=== PATIENT | male | born 1955 | race Caucasian/White ===

== ENCOUNTER 2019-05-04 17:59 | Inpatient (IN) | payer OTHER, SELFPAY ==
[2019-05-04 18:10] VITALS: BP 171/101; PULSE 109; RESP 24; TEMP 36.9; O2SAT 99
--- NOTE | 2019-05-04 18:20 | DI.RAD.S_ITS ---
PROCEDURE: XR CHEST 1V INDICATIONS: cp/soa TECHNIQUE: One view of the chest was acquired. COMPARISON: [facility], , CHEST 2 VIEW, 08/11/2013, 9:00. FINDINGS: Surgical changes and devices: None. Lungs and pleura: Right lower lobe infiltrate. No pleural effusions or pneumothorax. Mediastinum: Mediastinal contours appear normal. Heart size is normal. Bones and chest wall: No suspicious bony lesions. Overlying soft tissues appear unremarkable. IMPRESSION: Right lower lobe infiltrate suspicious for pneumonia Dictated by: Sid Francois M.D. on 05/04/2019 at 18:57 Approved by: Sid Francois M.D. on 05/04/2019 at 18:58
[2019-05-04 18:39] LABS: Alanine Aminotransferase 30 IU/L (<50); Albumin 2.4 g/dL (3.5-5.0); Albumin Globulin Ratio 0.6 (1.0-2.8); Alkaline Phosphatase 124 U/L (38-126); Aspartate Aminotransferase 41 IU/L (17-59); BUN Creatinine Ratio 23.3 (6-22); Bilirubin Total 1.1 mg/dL (0.2-1.3); Blood Urea Nitrogen 14 mg/dL (9-20); Calcium 7.5 mg/dL (8.4-10.2); Carbon Dioxide 20 mmol/L (22-32); Chloride 113 mmol/L (98-107); Estimated Glomerular Filt Rate > 60.0 mL/min (>60); Globulin 4.2 g/dL (1.7-4.1); Glucose 116 mg/dL (80-110); HEMOLYSIS < 15 (0-50); Lipase 152 U/L (23-300); Potassium 4.2 mmol/L (3.4-5.1); Sodium 139 mmol/L (137-145); Total Protein 6.6 g/dL (6.3-8.2)
--- NOTE | 2019-05-04 18:47 | ED.CHESTPAIN ---
HPI - Chest Pain General Chief Complaint: Chest Pain Stated Complaint: heart hurts, trouble breathing Time Seen by Provider: 05/04/19 18:36 Source: patient Mode of arrival: Ambulatory History of Present Illness HPI narrative: Chief complaint: Shortness of breath on exertion. History of present illness: The patient is a 64-year-old male who is a very poor historian. He denies any chest pain. He complains primarily of shortness of breath on exertion. He as he is complaining of the shortness of breath he is pointing to his abdomen with massive ascites. He complains of abdominal pain when walking and ambulating. He denies a history of phlebitis or pulmonary embolism. He arm smoke cigarettes. He denies a history of COPD myocardial infarction congestive heart failure hypertension and diabetes mellitus. I am not sure that he fully understands my questioning. He has had no fever chills or sweats and denies any headache. He complains primarily of shortness of breath repeated the. He has had no cough palpitations or dizziness. He denies any nausea vomiting diarrhea. He has had no urinary symptoms. He denies any cirrhosis of the liver liver disease. Related Data Allergies Allergy/AdvReac Type Severity Reaction Status Date / Time No Known Drug Allergies Allergy Verified 05/04/19 18:12 Review of Systems Review of Systems Narrative: The patient is a poor historian and I question his reliability. The patient's review of systems were all negative except for those mentioned in the history of present illness. Exam Narrative Exam Narrative: PHYSICAL EXAM: CONSTITUTIONAL: Awake, Alert, Cooperative in NAD. The patient seems to be laughing inappropriately. He does not appear acutely toxic or ill. HEAD: AT/NC EENT: PERRL, FROM of eyes, no discharge, no nystagmus. The patient is not cooperative and is moving about. His sclerae are muddy and questionably icteric. His skin seems to be jaundiced No epistaxis or nasal drainage Oral mucosa is moist and pink, posterior pharynx is without erythema or exudate. NECK: Supple, no obvious JVD, Trachea is midline without stridor, no palpable LN or masses. SPINE: No gross deformity, no palpable tenderness of the cervical, thoracic, lumbar or sacral spine. No CVA tenderness. The patient has 2+ sacral edema. THORAX: No deformity, retractions, chest wall tenderness, subcutaneous air or crepitice. LUNGS: Bibasilar inspiratory crackles no expiratory wheezes or rhonchi appreciated. HEART: Heart tones are irregular periodically but for the most part regular. No appreciable murmur. ABDOMEN: Massively distended with an umbilical hernia . Abdomen is taut with shifting dullness. There is diffuse tenderness but no guarding or rebound appreciated. EXTREMITIES: Legs are swollen and taut with 2+ pitting edema. There appears to be some mild venous stasis changes. There is no significant calf tenderness. SKIN: No rash, bruising, petechiae or purpura. NEURO: Awake, alert, conversive, cranial nerves II-XII are symmetrical and normal, moves all 4 extremities . Initial Vital Signs Initial Vital Signs: Vital Signs Temperature 98.5 F 05/04/19 18:10 Pulse Rate 109 H 05/04/19 18:10 Respiratory Rate 24 05/04/19 18:10 Blood Pressure 171/101 H 05/04/19 18:10 Pulse Oximetry 99 05/04/19 18:10 Course Course Course Narrative: 1856: I could not find arm any history document of his home liver disease. The patient clinically appears to have massive ascites with anasarca and sacral edema as well as 2+ pitting edema for the entire length of his legs. The patient has been administered 60 mg of Lasix IV push. Clinically the patient may need to be admitted for further evaluation and a therapeutic paracentesis. 2015: The patient rectal exam revealed no masses arm however the stool was brown and tested grossly positive for occult blood. The patient has an occult GI bleed. His hemoglobin is 5.9 and is being transfused 2 units of packed red blood cells. The patient will be admitted as an inpatient to Dr. Renteria the hospitalist. Orders Ordered: ED Orders 05/04/19 18:18 EKG-12 Lead Stat 05/04/19 18:20 Chest [XR chest 1V] Stat Complete Blood Count AUTO DIFF Stat Comprehensive Metabolic Panel Stat Ethanol (ETOH) Stat Folate Stat Ketones (Beta-Hydroxybutyrate) Stat Lipase Stat NT-proBNP (BNP-Adult 18+) Stat Partial Thromboplastin Time Stat Pathologist Review (for CBC) Stat Prothrombin Time INR Stat Reticulocyte Count, Percent Stat Troponin I Stat Vitamin B12 Stat 05/04/19 19:08 Lactate (Lactic Acid) Stat Packed Cells Stat Type and Screen Stat 05/04/19 19:42 CT abdomen w con Stat 05/04/19 19:53 Blood Culture Stat Levofloxacin (Levaquin) 750 mg in 150 mls @ 100 mls/hr IV NOW ONE Stop: 05/04/19 21:22 Last Admin: 05/04/19 20:00 Dose: 100 mls/hr Documented by: CRYSTAL Magnesium Sulfate 2 gm/ Folic Acid 1 mg/ Thiamine HCl 100 mg / Multivitamins 10 ml/ Sodium Chloride 1,015.2 mls @ 125 mls/hr IV NOW ONE Stop: 05/05/19 04:01 Last Admin: 05/04/19 20:14 Dose: 125 mls/hr Documented by: LEXY Discontinued Medications Furosemide (Lasix) 60 mg IV NOW ONE Stop: 05/04/19 18:47 Last Admin: 05/04/19 19:00 Dose: 60 mg Documented by: SCANWENDY Vital Signs Vital signs: Vital Signs - 8 hr 05/04/19 18:10 Temperature 98.5 F Pulse Rate 109 H Respiratory Rate 24 Blood Pressure 171/101 H Pulse Oximetry 99 MDM - Chest Pain Medical Records Data Attestation: I reviewed the patient's medical records. Lab Data Attestation: I reviewed the patient's lab results. Result diagrams: 05/04/19 18:20 05/04/19 18:20 Labs: Lab Results 05/04/19 05/04/19 05/04/19 Range/Units 18:20 18:20 18:20 WBC 2.7 L (4.5-11.0) X10^3/uL RBC 3.17 L (4.5-5.9) X10^6/uL Hgb 5.9 L* (13.5-17.5) g/dL Hct 20.3 L* (41-53) % MCV 63.9 L (80-100) fL MCH 18.6 L (26-34) PG MCHC 29.1 L (30-36) % RDW 28.6 H (11.6-14.8) % Plt Count 40 L (150-400) X10^3/uL Neut % (Auto) Not Reportable Lymph % (Auto) Not Reportable [place] % (Auto) Not Reportable Eos % (Auto) Not Reportable Baso % (Auto) Not Reportable Lymph # (Auto) Not Reportable [place] # (Auto) Not Reportable Baso # (Auto) Not Reportable Total Counted 90 Seg Neutrophils % 70.0 (38-70) % Band Neutrophils % 2.2 L (3-7) % Lymphocytes % (Manual) 17.8 L (25-45) % Monocytes % (Manual) 6.7 (2-11) % Eosinophils % (Manual) 2.2 (2-4) % Basophils % (Manual) 1.1 H (0-1) % Neutrophils # (Manual) 1949 L (2646-8850) /uL Nucleated RBCs 1 H ( - 0) #/Diff Differential Comment Note: Platelet Estimate Decreased on smear RBC Morphology See below Polychromasia 1+ H Hypochromasia 3+ H Poikilocytosis 3+ H Anisocytosis 3+ H Microcytosis 3+ H Spherocytes 1+ H Target Cells 1+ H Tear Drop Cells 1+ H Ovalocytes 1+ H Acanthocytes (Spur) 1+ Schistocytes 1+ H Percent Retic (0.87-2.60) % PT 19.1 H (10.1-12.7) SECONDS INR 1.7 H (0.9-1.3) APTT 37 H (26.4-36.2) SECONDS Sodium 139 (137-145) mmol/L Potassium 4.2 (3.4-5.1) mmol/L Chloride 113 H (98-107) mmol/L Carbon Dioxide 20 L (22-32) mmol/L BUN 14 (9-20) mg/dL Creatinine 0.60 L (0.66-1.25) mg/dL Estimated GFR > 60.0 (>60) mL/min BUN/Creatinine Ratio 23.3 H (6-22) Glucose 116 H (80-110) mg/dL Lactate (0.7-2.1) mmol/L Calcium 7.5 L (8.4-10.2) mg/dL Total Bilirubin 1.1 (0.2-1.3) mg/dL AST 41 (17-59) IU/L ALT 30 (<50) IU/L Alkaline Phosphatase 124 (38-126) U/L Troponin I < 0.012 (0.01-0.034) ng/mL NT-Pro-B Natriuret Pep 596 H (<125) pg/mL Total Protein 6.6 (6.3-8.2) g/dL Albumin 2.4 L (3.5-5.0) g/dL Globulin 4.2 H (1.7-4.1) g/dL Albumin/Globulin Ratio 0.6 L (1.0-2.8) Lipase 152 (23-300) U/L Ethyl Alcohol ( - 10) mg/dL Ketones (<0.27) mmol/L Crossmatch 05/04/19 05/04/19 05/04/19 Range/Units 18:20 18:20 18:20 WBC (4.5-11.0) X10^3/uL RBC (4.5-5.9) X10^6/uL Hgb (13.5-17.5) g/dL Hct (41-53) % MCV (80-100) fL MCH (26-34) PG MCHC (30-36) % RDW (11.6-14.8) % Plt Count (150-400) X10^3/uL Neut % (Auto) Lymph % (Auto) [place] % (Auto) Eos % (Auto) Baso % (Auto) Lymph # (Auto) [place] # (Auto) Baso # (Auto) Total Counted Seg Neutrophils % (38-70) % Band Neutrophils % (3-7) % Lymphocytes % (Manual) (25-45) % Monocytes % (Manual) (2-11) % Eosinophils % (Manual) (2-4) % Basophils % (Manual) (0-1) % Neutrophils # (Manual) (2821-8361) /uL Nucleated RBCs ( - 0) #/Diff Differential Comment Platelet Estimate RBC Morphology Polychromasia Hypochromasia Poikilocytosis Anisocytosis Microcytosis Spherocytes Target Cells Tear Drop Cells Ovalocytes Acanthocytes (Spur) Schistocytes Percent Retic 2.4 (0.87-2.60) % PT (10.1-12.7) SECONDS INR (0.9-1.3) APTT (26.4-36.2) SECONDS Sodium (137-145) mmol/L Potassium (3.4-5.1) mmol/L Chloride (98-107) mmol/L Carbon Dioxide (22-32) mmol/L BUN (9-20) mg/dL Creatinine (0.66-1.25) mg/dL Estimated GFR (>60) mL/min BUN/Creatinine Ratio (6-22) Glucose (80-110) mg/dL Lactate (0.7-2.1) mmol/L Calcium (8.4-10.2) mg/dL Total Bilirubin (0.2-1.3) mg/dL AST (17-59) IU/L ALT (<50) IU/L Alkaline Phosphatase (38-126) U/L Troponin I (0.01-0.034) ng/mL NT-Pro-B Natriuret Pep (<125) pg/mL Total Protein (6.3-8.2) g/dL Albumin (3.5-5.0) g/dL Globulin (1.7-4.1) g/dL Albumin/Globulin Ratio (1.0-2.8) Lipase (23-300) U/L Ethyl Alcohol < 10 ( - 10) mg/dL Ketones 0.05 (<0.27) mmol/L Crossmatch 05/04/19 05/04/19 Range/Units 19:08 19:08 WBC (4.5-11.0) X10^3/uL RBC (4.5-5.9) X10^6/uL Hgb (13.5-17.5) g/dL Hct (41-53) % MCV (80-100) fL MCH (26-34) PG MCHC (30-36) % RDW (11.6-14.8) % Plt Count (150-400) X10^3/uL Neut % (Auto) Lymph % (Auto) [place] % (Auto) Eos % (Auto) Baso % (Auto) Lymph # (Auto) [place] # (Auto) Baso # (Auto) Total Counted Seg Neutrophils % (38-70) % Band Neutrophils % (3-7) % Lymphocytes % (Manual) (25-45) % Monocytes % (Manual) (2-11) % Eosinophils % (Manual) (2-4) % Basophils % (Manual) (0-1) % Neutrophils # (Manual) (7822-7507) /uL Nucleated RBCs ( - 0) #/Diff Differential Comment Platelet Estimate RBC Morphology Polychromasia Hypochromasia Poikilocytosis Anisocytosis Microcytosis Spherocytes Target Cells Tear Drop Cells Ovalocytes Acanthocytes (Spur) Schistocytes Percent Retic (0.87-2.60) % PT (10.1-12.7) SECONDS INR (0.9-1.3) APTT (26.4-36.2) SECONDS Sodium (137-145) mmol/L Potassium (3.4-5.1) mmol/L Chloride (98-107) mmol/L Carbon Dioxide (22-32) mmol/L BUN (9-20) mg/dL Creatinine (0.66-1.25) mg/dL Estimated GFR (>60) mL/min BUN/Creatinine Ratio (6-22) Glucose (80-110) mg/dL Lactate 2.8 H (0.7-2.1) mmol/L Calcium (8.4-10.2) mg/dL Total Bilirubin (0.2-1.3) mg/dL AST (17-59) IU/L ALT (<50) IU/L Alkaline Phosphatase (38-126) U/L Troponin I (0.01-0.034) ng/mL NT-Pro-B Natriuret Pep (<125) pg/mL Total Protein (6.3-8.2) g/dL Albumin (3.5-5.0) g/dL Globulin (1.7-4.1) g/dL Albumin/Globulin Ratio (1.0-2.8) Lipase (23-300) U/L Ethyl Alcohol ( - 10) mg/dL Ketones (<0.27) mmol/L Crossmatch See Detail ECG Data Attestation: I personally reviewed and interpreted this ECG as follows: Interpretation: The patient's EKG obtained on May 04 at 6:18 p.m.: 2 3 reveals a normal sinus rhythm. The patient has a QS wave in lead V1 and small Q-wave in lead III. The patient has low voltage in the limb leads. There are no acute diagnostic ST segment or T-wave changes. The patient has flat T-waves in leads III and AVF. The patient's EKG does not reveal any evidence of ischemia at this time. Discharge Plan Departure Patient Disposition: Admitted As Inpatient Clinical Impression: Acute dyspnea, Edema, peripheral, Anasarca, Acute GI bleeding Ascites Qualifiers: Ascites type: other type Qualified Code(s): R18.8 - Other ascites Anemia Qualifiers: Anemia type: unspecified type Qualified Code(s): D64.9 - Anemia, unspecified Pneumonia Qualifiers: Pneumonia type: due to unspecified organism Laterality: right Lung location: lower lobe of lung Qualified Code(s): J18.9 - Pneumonia, unspecified organism Admit Date/Time: 05/04/19 19:56 Admit Provider: David Renteria
[2019-05-04 18:51] LABS: NT-proBNP (BNP-Adult 18+) 596 pg/mL (<125); Troponin I < 0.012 ng/mL (0.01-0.034)
[2019-05-04] MEDS: FUROSEMIDE 100 MG/10 ML VIAL 60 MG IV (19:00)
[2019-05-04 19:06] LABS: INR 1.7 (0.9-1.3); Prothrombin Time 19.1 SECONDS (10.1-12.7)
[2019-05-04 19:09] LABS: PTT Partial Thromboplastin Tim 37 SECONDS (26.4-36.2)
[2019-05-04 19:17] LABS: Ketones (Beta-Hydroxybutyrate) 0.05 mmol/L (<0.27)
[2019-05-04 19:22] LABS: Mean Corpuscular HGB Conc 29.1 % (30-36); Mean Corpuscular Hemoglobin 18.6 PG (26-34); Mean Corpuscular Volume 63.9 fL (80-100); Platelet Count 40 X10^3/uL (150-400); Red Blood Cell Count 3.17 X10^6/uL (4.5-5.9); Red Cell Distribution Width 28.6 % (11.6-14.8); White Blood Cell Count 2.7 X10^3/uL (4.5-11.0)
[2019-05-04 19:23] LABS: Hemoglobin 5.9 g/dL (13.5-17.5)
[2019-05-04 19:24] LABS: Add Manual Diff / Slide Review YES; Hematocrit 20.3 % (41-53)
[2019-05-04 19:30] LABS: Anisocytosis 3+; Band Neutrophils Percent 2.2 % (3-7); Basophils Percent Manual 1.1 % (0-1); Eosinophils Percent Manual 2.2 % (2-4); Lymphocytes Percent Manual 17.8 % (25-45); Monocytes Percent Manual 6.7 % (2-11); Neutrophils Absolute Manual 1949 /uL (3000-5900); Nucleated Red Blood Cells 1 #/Diff; Platelet Estimate Decreased on smear; Total Cells Counted 90
[2019-05-04 19:31] LABS: Acanthocytes 1+; Hypochromasia 3+; Microcytosis 3+; Ovalocytes 1+; Poikilocytosis 3+; Polychromasia 1+; Schistocytes 1+; Spherocytes 1+; Target Cells 1+; Tear Drop Cells 1+
[2019-05-04 19:32] LABS: Morphology Comment NOTE:
[2019-05-04 19:40] LABS: Lactate (Lactic Acid) 2.8 mmol/L (0.7-2.1)
--- NOTE | 2019-05-04 19:42 | DI.CT.S_ITS ---
PROCEDURE: CT ABDOMEN PELVIS W CON INDICATIONS: abdominal pain, dyspnea, massive ascites, hemaglobin 5.5 TECHNIQUE: After the administration of intravenous contrast, 5 mm thick sections acquired from the diaphragm to the symphysis. 5 mm coronal and sagittal reformats were acquired. For radiation dose reduction, the following was used: automated exposure control, adjustment of mA and/or kV according to patient size. COMPARISON: [facility], CR, XR CHEST 1V, 05/04/2019, 18:23. FINDINGS: Image quality: Excellent. ABDOMEN: Lung bases: Small effusions bilaterally and bibasilar atelectasis. Heart size is normal. Small lateral hernia and mild concentric thickening of the distal esophagus. Solid organs: Liver demonstrates nodular contour consistent with cirrhosis. There is a 2 cm enhancing lesion in the inferior right hepatic lobe. A low density nodules seen superior right hepatic lobe. Gallbladder is suboptimally visualized. No opaque gallstones. Biliary system is non dilated. Pancreas enhances normally. Spleen is enlarged measuring 14.1 cm. No adrenal nodules. Kidneys demonstrate normal size and enhancement, without hydronephrosis. Peritoneum and bowel: A large amount of ascites is present. There are scattered colonic diverticula. No CT findings to suggest acute diverticulitis. Bowel loops demonstrate normal wall thickness and caliber. No free fluid or air. Nodes and vessels: No retroperitoneal or mesenteric adenopathy by size criteria. Aorta and inferior vena cava are normal in size. Recannulized umbilical vein consistent with portal hypertension. Miscellaneous: Small umbilical hernia is present. PELVIS: Genitourinary: Bladder wall thickness is normal. Miscellaneous: No inguinal adenopathy. There is a right inguinal hernia. Moderate hydrocele right scrotum. Bones: No suspicious bony lesions. No vertebral body compression fractures. There are multiple old right inferior fractures. IMPRESSION: 1. Cirrhotic liver. Splenomegaly and recannulized umbilical vein are consistent with portal hypertension. 2. There are 2 hepatic masses in right hepatic lobe, one hyperenhancing and one hyperenhancing, inadequately evaluated on the CT. A liver protocol MRI is recommended for further evaluation in this patient with cirrhosis. 3. Large amount of ascites. 4. Diverticulosis without acute diverticulitis. 5. Small bilateral pleural effusions and bibasilar atelectasis. 6. Right inguinal hernia and hydrocele in scrotum. Dictated by: Sid Francois M.D. on 05/04/2019 at 22:34 Approved by: Sid Francois M.D. on 05/04/2019 at 22:44
[2019-05-04 19:45] LABS: Ethanol (ETOH) < 10 mg/dL
[2019-05-04] MEDS: levoFLOXacin 750 MG/150 ML PIGGYBACK 100 MG IV (20:00)
[2019-05-04 20:09] LABS: Reticulocyte Count, Percent 2.4 % (0.87-2.60)
[2019-05-04] MEDS: MAGNESIUM SULFATE 2 GM, FOLIC ACID 1 MG, THIAMINE 100 MG, MULTIVITAMIN 10 ML in SODIUM ... IV (20:14)
[2019-05-04 20:26] LABS: HEMOLYSIS < 15 (0-50); Iron 18 ug/dL (49-181)
[2019-05-04 20:28] LABS: Ammonia (NH3) 15 umol/L (9-30)
[2019-05-04 20:38] LABS: Percent Iron Saturation 5 % (20-50); Total Iron Binding Capacity 378 ug/dL (261-462); Transferrin 299 mg/dL (206-381)
[2019-05-04 21:16] LABS: Reflexed Lactate in 2 Hours Y
[2019-05-04 21:27] LABS: Folate 9.5 ng/mL (2.76-20.0); Vitamin B12 > 1000 pg/mL (239-931)
[2019-05-04 21:43] LABS: Magnesium 1.9 mg/dL (1.6-2.3)
[2019-05-04 21:46] VITALS: BP 126/76; PULSE 96; RESP 20; TEMP 36.7
[2019-05-04 22:01] VITALS: BP 138/77; PULSE 95; RESP 19; TEMP 36.7
--- NOTE | 2019-05-04 22:07 | PM.HP.1 ---
History of Present Illness History of Present Illness Date Patient Seen: 05/04/19 Time Patient Seen: 20:41 Chief complaint: heart hurts, trouble breathing Narrative: Mr. Dilan Juárez is a 64-year-old male with unknown medical history as he does not seek medical care and takes only herbal medications. Patient presents to the ER due to increasing shortness of breath with a cough over the last 2-3 days. The patient is very difficult historian and additional information is obtained from close friend who indicates that the patient has had baseline shortness of breath for several months and noticed that his abdomen has gotten more distended. Patient has reported that he has increased abdominal pain with activity and exertional dyspnea. He denies complaints of fevers or chills and has no headaches or dizziness. He he reports no nasal congestion or sore throat. He denies complaints of chest pain or palpitations. He has shortness of breath as above. His states his abdomen has been distended and is more so than usual. He does endorse a history alcohol consumption but is unclear how much. He denies complaints constipation, diarrhea and denies blood in his stool. The patient traveled to [facility] leaving the end of February and returning April 24. While in [facility] the patient was in the hospital for 15 days but cannot state the reason or the dates and reports he was there for ?observation?. Upon arrival to the ER the patient is afebrile with temperature 98.5?, tachycardic at 109, blood pressure 171/101, respiratory rate of 24 saturating 99% on room air. On imaging chest x-ray shows right lower lobe infiltrate suspicious for pneumonia. He underwent abdominal pelvis CT with contrast revealing a nodular liver consistent with cirrhosis with a 2 cm Hinkle lesion in the inferior hepatic lobe and low-density nodule seen in the superior right hepatic lobe, the spleen is enlarged measuring 14.1 cm, remainder is solid organs appear within normal limits, large amount of ascites is noted as present and scattered colonic diverticula, small umbilical hernia. Twelve lead EKG finds sinus tach without ectopy, block or ischemia. On laboratory analysis he is pancytopenic with a white count of 2.7, hemoglobin of 5.9, hematocrit 20.3 and platelets of 40. His MCV is 63.9 and MCH is 18.6. He is noted to have 2.2 bands and on blood smear shows polychromasia, hypochromasia, poiklilocytosis, anisocytosis, mircocytosis, sphereocytes, target cells, tear drop cells, ovalocytes and schistocytes. On coagulation the patient has a PT of 19.1, INR of 1.7 and PTT of 37. On chemistries electrolytes are within normal limits and has a BUN 14 and creatinine 0.6 with a nonfasting glucose of 116. His magnesium is 1.9. His liver functions include a total bili of 1.1, AST of 41, ALT of 30, alkaline phosphatase 124. His lipase is is 152 and his albumin is 2.4. His ammonia level is 15. Has lactic acid of 2.8. Troponin is found to be less than 0.012 and a pro BNP of 596. Vitamin B12 is greater than 1000 and folate is 9.5. On toxicology is negative for ethanol alcohol and ketones are 0.05. Patient History Medical History No significant medical problems (Acute) Surgical History No significant past surgical history (Acute) Family & Social History Family history unavailable: Yes (Unable to obtain family history) Comment: The patient is and lives by himself in a trailer. Family and social history is difficult obtain partial information is obtained from the patient's close friend and septic to verification. Smoking: The patient is a current smoker reportedly 1/2 to 1 pack per day Alcohol: Patient is a daily drinker consuming 2-3 shots and/or a couple beers daily. Substance use: The patient uses herbal medications. Advanced directives: Patient does not appear to be able to determined code status and at this time will enter FULL CODE on his be half subject to verification. Patient's daughter will be arriving from out of town tomorrow and may be able to provide additional information. Meds Home Medications and Allergies Allergies Allergy/AdvReac Type Severity Reaction Status Date / Time No Known Drug Allergies Allergy Verified 05/04/19 18:12 Review of Systems Review of Systems Narrative: All systems reviewed are based on limited information and found unremarkable under discussed in the HPI above. Exam Vital Signs (past 8 hours): - 05/04/19 18:10 05/04/19 21:46 05/04/19 22:01 Temperature 98.5 F 98.0 F 98.1 F Pulse Rate 109 H 96 H 95 H Respiratory Rate 24 20 19 Blood Pressure 171/101 H 126/76 138/77 Pulse Oximetry 99 Oxygen Delivery Method Room Air Narrative Exam Narrative: GENERAL APPEARANCE: well developed, somewhat gaunt appearing male who is ill-appearing HEENT: Normocephalic, PERRLA, dark conjunctiva-not typical jaundice, EOMs intact, no rhinorrhea, mucous membranes are moist and pink. NECK/THYROID: neck supple, no JVD, no carotid bruit, no thyromegaly, trachea midline. LYMPH NODES: no cervical or supraclavicular lymphadenopathy. SKIN: [place], warm and dry, large area of lichenization lateral right lower leg approximately 13 x 5 cm, oncymycosis of nails HEART: regular rate and rhythm, S1-S2, no murmur, no rubs or gallops, brisk capillary refill, generalized 2+ edema LUNGS: clear to auscultation bilaterally, no coarseness crackles or wheezing, no cough present CHEST: Symmetrical movement, no accessory muscle use, good tidal volume. ABDOMEN: Firm, round, dull to percussion, no abdominal tenderness, no guarding or peritoneal signs, no organomegaly noted limited by ascites, no flank or suprapubic tenderness, umbilical hernia, active bowel tones. EXTREMITIES: moves all extremities, strength is 5/5 and symmetrical NEUROLOGIC: Patient is alert and oriented to person place and time, no gross focal neurologic deficits,sensation intact to light touch, hearing grossly normal to speech. PSYCH: Patient is poor historian, unable or unwilling to provide information, is cooperative, stable behavior. Objective Labs Result Diagrams: 05/05/19 03:00 05/05/19 03:00 Labs: Laboratory Results - last 24 hr 05/04/19 05/04/19 05/04/19 18:20 18:20 18:20 WBC 2.7 L RBC 3.17 L Hgb 5.9 L* Hct 20.3 L* MCV 63.9 L MCH 18.6 L MCHC 29.1 L RDW 28.6 H Plt Count 40 L Neut % (Auto) Not Reportable Lymph % (Auto) Not Reportable [place] % (Auto) Not Reportable Eos % (Auto) Not Reportable Baso % (Auto) Not Reportable Lymph # (Auto) Not Reportable [place] # (Auto) Not Reportable Baso # (Auto) Not Reportable Total Counted 90 Seg Neutrophils % 70.0 Band Neutrophils % 2.2 L Lymphocytes % (Manual) 17.8 L Monocytes % (Manual) 6.7 Eosinophils % (Manual) 2.2 Basophils % (Manual) 1.1 H Neutrophils # (Manual) 1949 L Nucleated RBCs 1 H Differential Comment Note: Platelet Estimate Decreased on smear RBC Morphology See below Polychromasia 1+ H Hypochromasia 3+ H Poikilocytosis 3+ H Anisocytosis 3+ H Microcytosis 3+ H Spherocytes 1+ H Target Cells 1+ H Tear Drop Cells 1+ H Ovalocytes 1+ H Acanthocytes (Spur) 1+ Schistocytes 1+ H Percent Retic PT 19.1 H INR 1.7 H APTT 37 H Sodium 139 Potassium 4.2 Chloride 113 H Carbon Dioxide 20 L BUN 14 Creatinine 0.60 L Estimated GFR > 60.0 BUN/Creatinine Ratio 23.3 H Glucose 116 H Lactate Calcium 7.5 L Magnesium Iron TIBC % Saturation Transferrin Total Bilirubin 1.1 AST 41 ALT 30 Alkaline Phosphatase 124 Ammonia Troponin I < 0.012 NT-Pro-B Natriuret Pep 596 H Total Protein 6.6 Albumin 2.4 L Globulin 4.2 H Albumin/Globulin Ratio 0.6 L Lipase 152 Vitamin B12 Folate Ethyl Alcohol Ketones Blood Type Antibody Screen Crossmatch 05/04/19 05/04/19 05/04/19 18:20 18:20 18:20 WBC RBC Hgb Hct MCV MCH MCHC RDW Plt Count Neut % (Auto) Lymph % (Auto) [place] % (Auto) Eos % (Auto) Baso % (Auto) Lymph # (Auto) [place] # (Auto) Baso # (Auto) Total Counted Seg Neutrophils % Band Neutrophils % Lymphocytes % (Manual) Monocytes % (Manual) Eosinophils % (Manual) Basophils % (Manual) Neutrophils # (Manual) Nucleated RBCs Differential Comment Platelet Estimate RBC Morphology Polychromasia Hypochromasia Poikilocytosis Anisocytosis Microcytosis Spherocytes Target Cells Tear Drop Cells Ovalocytes Acanthocytes (Spur) Schistocytes Percent Retic 2.4 PT INR APTT Sodium Potassium Chloride Carbon Dioxide BUN Creatinine Estimated GFR BUN/Creatinine Ratio Glucose Lactate Calcium Magnesium Iron TIBC % Saturation Transferrin Total Bilirubin AST ALT Alkaline Phosphatase Ammonia Troponin I NT-Pro-B Natriuret Pep Total Protein Albumin Globulin Albumin/Globulin Ratio Lipase Vitamin B12 Folate Ethyl Alcohol < 10 Ketones 0.05 Blood Type Antibody Screen Crossmatch 05/04/19 05/04/19 05/04/19 18:20 18:20 18:20 WBC RBC Hgb Hct MCV MCH MCHC RDW Plt Count Neut % (Auto) Lymph % (Auto) [place] % (Auto) Eos % (Auto) Baso % (Auto) Lymph # (Auto) [place] # (Auto) Baso # (Auto) Total Counted Seg Neutrophils % Band Neutrophils % Lymphocytes % (Manual) Monocytes % (Manual) Eosinophils % (Manual) Basophils % (Manual) Neutrophils # (Manual) Nucleated RBCs Differential Comment Platelet Estimate RBC Morphology Polychromasia Hypochromasia Poikilocytosis Anisocytosis Microcytosis Spherocytes Target Cells Tear Drop Cells Ovalocytes Acanthocytes (Spur) Schistocytes Percent Retic PT INR APTT Sodium Potassium Chloride Carbon Dioxide BUN Creatinine Estimated GFR BUN/Creatinine Ratio Glucose Lactate Calcium Magnesium Iron 18 L TIBC 378 % Saturation 5 L Transferrin 299 Total Bilirubin AST ALT Alkaline Phosphatase Ammonia 15 Troponin I NT-Pro-B Natriuret Pep Total Protein Albumin Globulin Albumin/Globulin Ratio Lipase Vitamin B12 > 1000 H Folate 9.5 Ethyl Alcohol Ketones Blood Type Antibody Screen Crossmatch 05/04/19 05/04/19 05/04/19 18:20 19:08 19:08 WBC RBC Hgb Hct MCV MCH MCHC RDW Plt Count Neut % (Auto) Lymph % (Auto) [place] % (Auto) Eos % (Auto) Baso % (Auto) Lymph # (Auto) [place] # (Auto) Baso # (Auto) Total Counted Seg Neutrophils % Band Neutrophils % Lymphocytes % (Manual) Monocytes % (Manual) Eosinophils % (Manual) Basophils % (Manual) Neutrophils # (Manual) Nucleated RBCs Differential Comment Platelet Estimate RBC Morphology Polychromasia Hypochromasia Poikilocytosis Anisocytosis Microcytosis Spherocytes Target Cells Tear Drop Cells Ovalocytes Acanthocytes (Spur) Schistocytes Percent Retic PT INR APTT Sodium Potassium Chloride Carbon Dioxide BUN Creatinine Estimated GFR BUN/Creatinine Ratio Glucose Lactate 2.8 H Calcium Magnesium 1.9 Iron TIBC % Saturation Transferrin Total Bilirubin AST ALT Alkaline Phosphatase Ammonia Troponin I NT-Pro-B Natriuret Pep Total Protein Albumin Globulin Albumin/Globulin Ratio Lipase Vitamin B12 Folate Ethyl Alcohol Ketones Blood Type O Positive Antibody Screen Negative Crossmatch See Detail 05/04/19 20:36 WBC RBC Hgb Hct MCV MCH MCHC RDW Plt Count Neut % (Auto) Lymph % (Auto) [place] % (Auto) Eos % (Auto) Baso % (Auto) Lymph # (Auto) [place] # (Auto) Baso # (Auto) Total Counted Seg Neutrophils % Band Neutrophils % Lymphocytes % (Manual) Monocytes % (Manual) Eosinophils % (Manual) Basophils % (Manual) Neutrophils # (Manual) Nucleated RBCs Differential Comment Platelet Estimate RBC Morphology Polychromasia Hypochromasia Poikilocytosis Anisocytosis Microcytosis Spherocytes Target Cells Tear Drop Cells Ovalocytes Acanthocytes (Spur) Schistocytes Percent Retic PT INR APTT Sodium Potassium Chloride Carbon Dioxide BUN Creatinine Estimated GFR BUN/Creatinine Ratio Glucose Lactate 2.0 Calcium Magnesium Iron TIBC % Saturation Transferrin Total Bilirubin AST ALT Alkaline Phosphatase Ammonia Troponin I NT-Pro-B Natriuret Pep Total Protein Albumin Globulin Albumin/Globulin Ratio Lipase Vitamin B12 Folate Ethyl Alcohol Ketones Blood Type Antibody Screen Crossmatch Assessment & Plan Assessment & Plan narrative: This is a 64-year-old male who presents to the ER with shortness of breath and cough for the last 2-3 days in the setting of recent travel to [place] for 30 days and hospitalization for 15 days for unclear reason. The patient is immunocompromised with a white blood cell count of 2.7, diagnosed with pneumonia by chest x-ray, liver cirrhosis severe anemia with a hemoglobin of 5.9 and liver cirrhosis with ascites. [facility] [place]ons[place]ves virus hot[place] is contacted for guidance. Referred to [facility] who was called and message left on the 20/4 hour recorded line. Return or call to the [facility] [place] [facility], Doug Fournier, who agreed that the situation was concerning for possible gonsalves virus exposure. Recommended patient be placed on droplet/contact and airborne precautions. Received call back from Anuradha Balbuena [facility] and discuss the patient's case. The case will be referred to [facility] as the county of residence for the patient. Will await call back from [facility] epidemiology or regarding guidance. Until such time the patient will remain on isolation. 1. Right lower lobe pneumonia, acute, present on admission, active. Shortness of breath for 2-3 days with an associated cough and increased dyspnea on exertion. On arrival to the ER the patient is tachypneic respiratory rate 24 saturating 99% on room air. Chest x-ray finds right lower lobe infiltrates suspicious for pneumonia. Patient is neutropenic at 2.7 and has bands of 2.2. Obtain respiratory PCR. As noted above, contacting [facility] department regarding screening for gonsalves virus. Ordered Levaquin 750 mg daily.. Will follow blood count and follow-up with health department for additional testing 2. Microcytic hypochromic anemia, unknown if acute or chronic, present on admission, active. Hemoglobin on admission is 5.9 with hematocrit of 20.3. MCV is 63.9, MCH is 18.6. Patient with no overt signs of bleeding or bruising, no hematemesis, hemoptysis, hematochezia or reports of melena, he is guaiac positive. Patient's typed and screened, transfuse 2 units packed RBCs. Recheck H&H 1 hour post transfusion. Will monitor blood count closely. 3. Liver cirrhosis with ascites, chronic, present on admission, active. Patient has not had previous medical care but has reportedly had a large and min for long time. Per friend of the patient he has been having more abdominal distension and complaining more of abdominal pain with activity. CT scan identifies a nodular contour of the liver consistent with cirrhosis with a 2 cm enhancing lesion in the inferior right hepatic lobe and a low density nodules seen superior right hepatic lobe. Laboratory findings identified bilirubin 1.1, AST of 41, ALT of 30 and alkaline phosphatase of 124, albumin is 2.4, lipase is 152, PT is 19.1 and INR is 1.7. Firm abdomen, unable to palpate abdominal organs, CT scan identifies large amount of ascites. Will obtain alpha-fetoprotein. Patient will need a therapeutic paracentesis. Received Lasix 60 mg in the emergency department will continue Lasix 40 mg daily. 4. Anasarca, present on admission, active. The patient has 2+ sacral and edema the length of bilateral lower extremities. Albumin is 2.4. Diurese with Lasix 40 mg daily. VTE prophylaxis: SCDs, chemical prophylaxis not indicated with elevated INR Diet: Low-sodium low-fat IV fluid: Saline lock The patient is admitted to the hospital for pneumonia concerning for gonsalves virus, previously undiagnosed cirrhosis and ascites with anasarca and severe anemia all which which require ongoing evaluation monitoring and treatment. The patient is admitted as an inpatient with expected length of stay to be greater than 2 midnights
[2019-05-04 23:06] LABS: Adenovirus Not Detected (Not Detect); Bordetella pertussis Not Detected (Not Detect); Chlamydophila pneumoniae Not Detected (Not Detect); Coronavirus 229E Not Detected (Not Detect); Coronavirus HKU1 Not Detected (Not Detect); Coronavirus NL 63 Not Detected (Not Detect); Coronavirus OC43 Not Detected (Not Detect); Human Metapneumovirus Not Detected (Not Detect); Human Rhinovirus/Enterovirus Not Detected (Not Detect); Influenza A Not Detected (Not Detect); Influenza B Not Detected (Not Detect); Mycoplasma pneumoniae Not Detected (Not Detect); Parainfluenza Virus 1 Not Detected (Not Detect); Parainfluenza Virus 2 Not Detected (Not Detect); Parainfluenza Virus 3 Not Detected (Not Detect); Parainfluenza Virus 4 Not Detected (Not Detect); Respiratory Syncytial Virus Not Detected (Not Detect)
[2019-05-04 23:42] VITALS: BP 124/74; PULSE 94; RESP 16; O2SAT 97
[2019-05-04 23:44] VITALS: TEMP 36.8
[2019-05-05] VITALS (8 sets, daily range): BP systolic 120–166; BP diastolic 81–95; PULSE 90–113; RESP 16–31; TEMP 36.5–37.7; O2SAT 98–100; BMI 27.3
--- NOTE | 2019-05-05 01:05 | PC.NURSE ---
2300 I phoned the [facility] Department to seek guidance around the necessity of airborne precautions for this patient with concern for Coronavirus. According to the screening tools available to me, the patient does not meet criteria to trigger a Novel Coronavirus screen. I spoke with Lauren Balbuena, the [facility] Communicable Disease and Epidemiology lead, who stated that she didn't believe this patient to be high-risk for Coronavirus and recommended standard precautions. Hospitalist Dexter notified of above. He wishes to continue airborne precautions.
--- NOTE | 2019-05-05 03:16 | PC.NURSE ---
NOC note Pt arrived at approx 0105, transfer to the bed with minimal assist. LS are diminished. Edema to BLE up to ABD, Venous stasis changed noted to right ankle and lower leg. Pt denies pain and reports pressure and tightness of ABD. 99-100% on RA. Pt is in airborne isolation. Completed 2nd unit of blood, started in the ED, after admit.
[2019-05-05 03:41] LABS: Hematocrit 26.3 % (41-53); Hemoglobin 7.9 g/dL (13.5-17.5); Mean Corpuscular HGB Conc 30.1 % (30-36); Mean Corpuscular Hemoglobin 20.6 PG (26-34); Mean Corpuscular Volume 68.6 fL (80-100); Platelet Count 38 X10^3/uL (150-400); Red Blood Cell Count 3.84 X10^6/uL (4.5-5.9); Red Cell Distribution Width 30.5 % (11.6-14.8); White Blood Cell Count 3.3 X10^3/uL (4.5-11.0)
[2019-05-05 03:43] LABS: Blood Urea Nitrogen 14 mg/dL (9-20); Calcium 7.4 mg/dL (8.4-10.2); Carbon Dioxide 23 mmol/L (22-32); Chloride 113 mmol/L (98-107); Estimated Glomerular Filt Rate > 60.0 mL/min (>60); Glucose 105 mg/dL (80-110); HEMOLYSIS < 15 (0-50); Potassium 4.4 mmol/L (3.4-5.1); Sodium 140 mmol/L (137-145)
[2019-05-05 03:46] LABS: Add Manual Diff / Slide Review YES
[2019-05-05 04:11] LABS: Anisocytosis 3+; Microcytosis 3+; Neutrophils Absolute Manual 2112 /uL (3000-5900); Total Cells Counted 100
[2019-05-05 04:12] LABS: Poikilocytosis 3+; Polychromasia 1+; Tear Drop Cells 1+
[2019-05-05 04:13] LABS: Acanthocytes 1+; Schistocytes 1+; Target Cells 1+
[2019-05-05 04:26] LABS: Bacteria Urine None Seen; RBC Urine None Seen (0-5/HPF); WBC Urine None Seen (0-5/HPF)
[2019-05-05 04:27] LABS: Appearance Urine UA CLEAR; Bilirubin Urine UA NEGATIVE (NEGATIVE); Color Urine UA YELLOW; Glucose Urine UA NEGATIVE (Negative); Ketones Urine UA NEGATIVE (NEGATIVE); Leukocyte Esterase Urine UA NEGATIVE (NEGATIVE); Nitrite Urine UA NEGATIVE (Negative); Occult Blood Urine UA NEGATIVE (Negative); Protein Urine UA NEGATIVE (Negative); Urobilinogen Urine UA 0.2 E.U./dL (0.2)
[2019-05-05 05:00] LABS: Culture Indicated Urine Cult Not Indicated; Urine Comments Microscopic Normal
[2019-05-05] MEDS: FUROSEMIDE 40 MG/4 ML VIAL IV ×2 (08:18→16:41)
[2019-05-05] MEDS: FOLIC ACID 1 MG TABLET PO (08:18)
[2019-05-05] MEDS: THIAMINE 100 MG TABLET PO (08:18)
[2019-05-05] MEDS: SODIUM CHLORIDE 0.9% FLUSH 10 ML IV (08:18)
--- NOTE | 2019-05-05 08:51 | ED.CHESTPAIN ---
HPI - Chest Pain General Chief Complaint: Chest Pain Stated Complaint: heart hurts, trouble breathing Time Seen by Provider: 05/04/19 18:36 Source: patient Mode of arrival: Ambulatory History of Present Illness HPI narrative: Chief complaint: shortness of breath. History of present illness: The patient is a 64-year-old O[place]i male who presents to the emergency department with shortness of breath. There is a language barrier and most of the information is translated and confirmed by his for younger friend. The act as though my questions are inappropriate laughing. He complains that he was short of breath but then points to his abdomen because of his massive ascites. He denies any headache fever chills or sweats. However he has had a mild cough. He has been dizzy and lightheaded but has had no palpitations. He denies any diarrhea melena or hematochezia. He denies a history of TB or hepatitis. He does admit that he drinks alcohol. He denies any neck pain jaw pain shoulder pain arm pain. He has not passed out. Related Data Home Medications Medication Instructions Recorded Confirmed No Known Home Medications 05/05/19 05/05/19 Allergies Allergy/AdvReac Type Severity Reaction Status Date / Time No Known Drug Allergies Allergy Verified 05/04/19 18:12 Review of Systems Review of Systems Narrative: The patient's review of systems were all negative except for those mentioned in the history of present illness. However there is a language barrier and most of the information was provided by the patient's friend. Patient History Medical History No significant medical problems (Acute) Surgical History No significant past surgical history (Acute) Social History household members: none Smoking Status: Current every day smoker alcohol intake: former Smoking Status: Current every day smoker Substance Use Type: does not use Exam Narrative Exam Narrative: PHYSICAL EXAM: CONSTITUTIONAL: Awake, Alert, Oriented, Coherent, Cooperative in NAD. Does not appear toxic or ill. The patient's sclera appear icteric and Jerome with a quiroz bronze color to his skin. The patient is laughing at all of my questions and is a questionable historian with a language barrier. HEAD: AT/NC EENT: PERRL, FROM of eyes, no discharge, no nystagmus, questionable scleral icterus. No epistaxis or nasal drainage Oral mucosa is moist and pink, posterior pharynx is without erythema or exudate. NECK: Supple, no obvious JVD, Trachea is midline without stridor, no palpable LN or masses. SPINE: No gross deformity, no palpable tenderness of the cervical, thoracic, lumbar or sacral spine. No CVA tenderness. THORAX: No deformity, retractions, chest wall tenderness, subcutaneous air or crepitice. LUNGS: Inspiratory crackles are noted in the patient's right posterior lower and lateral lung lopez. Relatively clear. There were no wheezes or rhonchi appreciated. HEART: Tachycardic without murmur. ABDOMEN: Massively distended with ascites and an umbilical hernia. The abdomen is extremely tense, EXTREMITIES: His legs are swollen tense 2+ pitting edema extending the full length of the legs and into the sacrum secondary to anasarca. SKIN: No rash, bruising, petechiae or purpura. NEURO: Awake, alert, talkative cranial nerves II-XII are symmetrical and normal, moves all 4 extremities and is ambulatory with generalized weakness. Initial Vital Signs Initial Vital Signs: Vital Signs Temperature 98.5 F 05/04/19 18:10 Pulse Rate 109 H 05/04/19 18:10 Respiratory Rate 24 05/04/19 18:10 Blood Pressure 171/101 H 05/04/19 18:10 Pulse Oximetry 99 05/04/19 18:10 Course Course Course Narrative: The patient is a 64-year-old who presented to the emergency department with shortness of breath. He was a poor historian laughing at my questions. Most of his questions were answered by the young man assisting him. He claimed to be short of breath but kept pointing to his distended abdomen with massive ascites. He has a history of drinking daily. He had no energy. His hemoglobin was 5.9 with his rectal exam revealing brown stool that tested grossly positive for occult blood. Chest x-ray revealed that he had a right lower lobe pneumonia. He was admitted to the hospital. In the process of admitting he the patient and working with the patient I spoke with his daughter who did not provide us with the information that he had recently been in [place] and hospitalized in the hospital for 15 days. The patient consequently was admitted to the hospital and evaluated for gonsalves virus. He was placed in reverse isolation. Because of his ascites and alcohol ingestion he was started on a banana bag. He was administered 60 mg of Lasix IV because of his generalized anasarca and sacral edema. Orders Ordered: Folic Acid (Folic Acid) 1 mg PO DAILY [facility] Last Admin: 05/06/19 08:07 Dose: 1 mg Documented by: Admin: 05/05/19 08:18 Dose: 1 mg Documented by: YOKASTA Furosemide (Lasix) 40 mg IV Q8H [facility] Last Admin: 05/06/19 08:07 Dose: 40 mg Documented by: Admin: 05/06/19 01:00 Dose: 40 mg Documented by: Admin: 05/05/19 16:41 Dose: 40 mg Documented by: HELEN Levofloxacin (Levaquin) 750 mg in 150 mls @ 100 mls/hr IV Q24H [facility] Last Infusion: 05/06/19 03:52 Dose: 0 mls/hr Documented by: Admin: 05/05/19 19:09 Dose: 100 mls/hr Documented by: HELEN Lorazepam (Ativan) 0 mg IV CIWAPRN PRN; Protocol PRN Reason: Alcohol Withdrawal Lorazepam (Ativan) 0 mg PO CIWAPRN PRN; Protocol PRN Reason: Alcohol Withdrawal Naloxone HCl (Narcan) 0.2 mg IV Q2MIN PRN PRN Reason: Opiate Reversal Promethazine HCl (Phenadoz) 12.5 mg OH Q6HR PRN PRN Reason: Nausea And Vomiting Spironolactone (Aldactone) 50 mg PO DAILY [facility] Last Admin: 05/06/19 08:07 Dose: 50 mg Documented by: WILL Thiamine HCl (Vitamin B-1) 100 mg PO DAILY [facility] Last Admin: 05/06/19 08:26 Dose: 100 mg Documented by: Admin: 05/05/19 08:18 Dose: 100 mg Documented by: YOKASTA Discontinued Medications Acetaminophen (Tylenol) 650 mg PO Q6HR PRN PRN Reason: Fever/Mild Pain (1-3) Furosemide (Lasix) 60 mg IV NOW ONE Stop: 05/04/19 18:47 Last Admin: 05/04/19 19:00 Dose: 60 mg Documented by: MELVINA Furosemide (Lasix) 40 mg IV DAILY [facility] Last Admin: 05/05/19 08:18 Dose: 40 mg Documented by: YOKASTA Levofloxacin (Levaquin) 750 mg in 150 mls @ 100 mls/hr IV NOW ONE Stop: 05/04/19 21:22 Last Infusion: 05/04/19 22:29 Dose: 0 mls/hr Documented by: Admin: 05/04/19 20:00 Dose: 100 mls/hr Documented by: CRYSTAL Magnesium Sulfate 2 gm/ Folic Acid 1 mg/ Thiamine HCl 100 mg / Multivitamins 10 ml/ Sodium Chloride 1,015.2 mls @ 125 mls/hr IV NOW ONE Stop: 05/05/19 04:01 Last Infusion: 05/05/19 05:44 Dose: 0 mls/hr Documented by: Admin: 05/04/19 20:14 Dose: 125 mls/hr Documented by: LEXY Iron Sucrose 200 mg/ Sodium (Chloride) 110 mls @ 220 mls/hr IV NOW ONE Stop: 05/05/19 16:37 Last Infusion: 05/06/19 03:53 Dose: 0 mls/hr Documented by: Admin: 05/05/19 19:10 Dose: 220 mls/hr Documented by: HELEN Sodium Chloride (Normal Saline 0.9% Flush) 10 ml IV PRN PRN PRN Reason: Flush Sodium Chloride (Normal Saline 0.9% Flush) 10 ml IV BID [facility] Last Admin: 05/05/19 08:18 Dose: 10 ml Documented by: YOKASTA MDM - Chest Pain Medical Records Data Attestation: I reviewed the patient's medical records. Lab Data Attestation: I reviewed the patient's lab results. Result diagrams: 05/06/19 08:30 05/06/19 08:30 Labs: Lab Results 05/04/19 05/04/19 05/04/19 Range/Units 18:20 18:20 18:20 WBC 2.7 L (4.5-11.0) X10^3/uL RBC 3.17 L (4.5-5.9) X10^6/uL Hgb 5.9 L* (13.5-17.5) g/dL Hct 20.3 L* (41-53) % MCV 63.9 L (80-100) fL MCH 18.6 L (26-34) PG MCHC 29.1 L (30-36) % RDW 28.6 H (11.6-14.8) % Plt Count 40 L (150-400) X10^3/uL Neut % (Auto) Not Reportable Lymph % (Auto) Not Reportable [place] % (Auto) Not Reportable Eos % (Auto) Not Reportable Baso % (Auto) Not Reportable Lymph # (Auto) Not Reportable [place] # (Auto) Not Reportable Baso # (Auto) Not Reportable Total Counted 90 Seg Neutrophils % 70.0 (38-70) % Band Neutrophils % 2.2 L (3-7) % Lymphocytes % (Manual) 17.8 L (25-45) % Monocytes % (Manual) 6.7 (2-11) % Eosinophils % (Manual) 2.2 (2-4) % Basophils % (Manual) 1.1 H (0-1) % Neutrophils # (Manual) 1949 L (7489-0562) /uL Nucleated RBCs 1 H ( - 0) #/Diff Differential Comment Note: Platelet Estimate Decreased on smear RBC Morphology See below Polychromasia 1+ H Hypochromasia 3+ H Poikilocytosis 3+ H Anisocytosis 3+ H Microcytosis 3+ H Spherocytes 1+ H Target Cells 1+ H Tear Drop Cells 1+ H Ovalocytes 1+ H Acanthocytes (Spur) 1+ Schistocytes 1+ H Percent Retic (0.87-2.60) % PT 19.1 H (10.1-12.7) SECONDS INR 1.7 H (0.9-1.3) APTT 37 H (26.4-36.2) SECONDS Sodium 139 (137-145) mmol/L Potassium 4.2 (3.4-5.1) mmol/L Chloride 113 H (98-107) mmol/L Carbon Dioxide 20 L (22-32) mmol/L BUN 14 (9-20) mg/dL Creatinine 0.60 L (0.66-1.25) mg/dL Estimated GFR > 60.0 (>60) mL/min BUN/Creatinine Ratio 23.3 H (6-22) Glucose 116 H (80-110) mg/dL Lactate (0.7-2.1) mmol/L Calcium 7.5 L (8.4-10.2) mg/dL Magnesium (1.6-2.3) mg/dL Iron (49-181) ug/dL TIBC (261-462) ug/dL % Saturation (20-50) % Transferrin (206-381) mg/dL Total Bilirubin 1.1 (0.2-1.3) mg/dL AST 41 (17-59) IU/L ALT 30 (<50) IU/L Alkaline Phosphatase 124 (38-126) U/L Ammonia (9-30) umol/L Troponin I < 0.012 (0.01-0.034) ng/mL NT-Pro-B Natriuret Pep 596 H (<125) pg/mL Total Protein 6.6 (6.3-8.2) g/dL Albumin 2.4 L (3.5-5.0) g/dL Globulin 4.2 H (1.7-4.1) g/dL Albumin/Globulin Ratio 0.6 L (1.0-2.8) Lipase 152 (23-300) U/L Vitamin B12 (239-931) pg/mL Folate (2.76-20.0) ng/mL Ethyl Alcohol ( - 10) mg/dL Ketones (<0.27) mmol/L Blood Type Antibody Screen Crossmatch 05/04/19 05/04/19 05/04/19 Range/Units 18:20 18:20 18:20 WBC (4.5-11.0) X10^3/uL RBC (4.5-5.9) X10^6/uL Hgb (13.5-17.5) g/dL Hct (41-53) % MCV (80-100) fL MCH (26-34) PG MCHC (30-36) % RDW (11.6-14.8) % Plt Count (150-400) X10^3/uL Neut % (Auto) Lymph % (Auto) [place] % (Auto) Eos % (Auto) Baso % (Auto) Lymph # (Auto) [place] # (Auto) Baso # (Auto) Total Counted Seg Neutrophils % (38-70) % Band Neutrophils % (3-7) % Lymphocytes % (Manual) (25-45) % Monocytes % (Manual) (2-11) % Eosinophils % (Manual) (2-4) % Basophils % (Manual) (0-1) % Neutrophils # (Manual) (6947-5787) /uL Nucleated RBCs ( - 0) #/Diff Differential Comment Platelet Estimate RBC Morphology Polychromasia Hypochromasia Poikilocytosis Anisocytosis Microcytosis Spherocytes Target Cells Tear Drop Cells Ovalocytes Acanthocytes (Spur) Schistocytes Percent Retic 2.4 (0.87-2.60) % PT (10.1-12.7) SECONDS INR (0.9-1.3) APTT (26.4-36.2) SECONDS Sodium (137-145) mmol/L Potassium (3.4-5.1) mmol/L Chloride (98-107) mmol/L Carbon Dioxide (22-32) mmol/L BUN (9-20) mg/dL Creatinine (0.66-1.25) mg/dL Estimated GFR (>60) mL/min BUN/Creatinine Ratio (6-22) Glucose (80-110) mg/dL Lactate (0.7-2.1) mmol/L Calcium (8.4-10.2) mg/dL Magnesium (1.6-2.3) mg/dL Iron (49-181) ug/dL TIBC (261-462) ug/dL % Saturation (20-50) % Transferrin (206-381) mg/dL Total Bilirubin (0.2-1.3) mg/dL AST (17-59) IU/L ALT (<50) IU/L Alkaline Phosphatase (38-126) U/L Ammonia (9-30) umol/L Troponin I (0.01-0.034) ng/mL NT-Pro-B Natriuret Pep (<125) pg/mL Total Protein (6.3-8.2) g/dL Albumin (3.5-5.0) g/dL Globulin (1.7-4.1) g/dL Albumin/Globulin Ratio (1.0-2.8) Lipase (23-300) U/L Vitamin B12 (239-931) pg/mL Folate (2.76-20.0) ng/mL Ethyl Alcohol < 10 ( - 10) mg/dL Ketones 0.05 (<0.27) mmol/L Blood Type Antibody Screen Crossmatch 05/04/19 05/04/19 05/04/19 Range/Units 18:20 18:20 18:20 WBC (4.5-11.0) X10^3/uL RBC (4.5-5.9) X10^6/uL Hgb (13.5-17.5) g/dL Hct (41-53) % MCV (80-100) fL MCH (26-34) PG MCHC (30-36) % RDW (11.6-14.8) % Plt Count (150-400) X10^3/uL Neut % (Auto) Lymph % (Auto) [place] % (Auto) Eos % (Auto) Baso % (Auto) Lymph # (Auto) [place] # (Auto) Baso # (Auto) Total Counted Seg Neutrophils % (38-70) % Band Neutrophils % (3-7) % Lymphocytes % (Manual) (25-45) % Monocytes % (Manual) (2-11) % Eosinophils % (Manual) (2-4) % Basophils % (Manual) (0-1) % Neutrophils # (Manual) (2595-5339) /uL Nucleated RBCs ( - 0) #/Diff Differential Comment Platelet Estimate RBC Morphology Polychromasia Hypochromasia Poikilocytosis Anisocytosis Microcytosis Spherocytes Target Cells Tear Drop Cells Ovalocytes Acanthocytes (Spur) Schistocytes Percent Retic (0.87-2.60) % PT (10.1-12.7) SECONDS INR (0.9-1.3) APTT (26.4-36.2) SECONDS Sodium (137-145) mmol/L Potassium (3.4-5.1) mmol/L Chloride (98-107) mmol/L Carbon Dioxide (22-32) mmol/L BUN (9-20) mg/dL Creatinine (0.66-1.25) mg/dL Estimated GFR (>60) mL/min BUN/Creatinine Ratio (6-22) Glucose (80-110) mg/dL Lactate (0.7-2.1) mmol/L Calcium (8.4-10.2) mg/dL Magnesium (1.6-2.3) mg/dL Iron 18 L (49-181) ug/dL TIBC 378 (261-462) ug/dL % Saturation 5 L (20-50) % Transferrin 299 (206-381) mg/dL Total Bilirubin (0.2-1.3) mg/dL AST (17-59) IU/L ALT (<50) IU/L Alkaline Phosphatase (38-126) U/L Ammonia 15 (9-30) umol/L Troponin I (0.01-0.034) ng/mL NT-Pro-B Natriuret Pep (<125) pg/mL Total Protein (6.3-8.2) g/dL Albumin (3.5-5.0) g/dL Globulin (1.7-4.1) g/dL Albumin/Globulin Ratio (1.0-2.8) Lipase (23-300) U/L Vitamin B12 > 1000 H (239-931) pg/mL Folate 9.5 (2.76-20.0) ng/mL Ethyl Alcohol ( - 10) mg/dL Ketones (<0.27) mmol/L Blood Type Antibody Screen Crossmatch 05/04/19 05/04/19 05/04/19 Range/Units 18:20 19:08 19:08 WBC (4.5-11.0) X10^3/uL RBC (4.5-5.9) X10^6/uL Hgb (13.5-17.5) g/dL Hct (41-53) % MCV (80-100) fL MCH (26-34) PG MCHC (30-36) % RDW (11.6-14.8) % Plt Count (150-400) X10^3/uL Neut % (Auto) Lymph % (Auto) [place] % (Auto) Eos % (Auto) Baso % (Auto) Lymph # (Auto) [place] # (Auto) Baso # (Auto) Total Counted Seg Neutrophils % (38-70) % Band Neutrophils % (3-7) % Lymphocytes % (Manual) (25-45) % Monocytes % (Manual) (2-11) % Eosinophils % (Manual) (2-4) % Basophils % (Manual) (0-1) % Neutrophils # (Manual) (6007-3681) /uL Nucleated RBCs ( - 0) #/Diff Differential Comment Platelet Estimate RBC Morphology Polychromasia Hypochromasia Poikilocytosis Anisocytosis Microcytosis Spherocytes Target Cells Tear Drop Cells Ovalocytes Acanthocytes (Spur) Schistocytes Percent Retic (0.87-2.60) % PT (10.1-12.7) SECONDS INR (0.9-1.3) APTT (26.4-36.2) SECONDS Sodium (137-145) mmol/L Potassium (3.4-5.1) mmol/L Chloride (98-107) mmol/L Carbon Dioxide (22-32) mmol/L BUN (9-20) mg/dL Creatinine (0.66-1.25) mg/dL Estimated GFR (>60) mL/min BUN/Creatinine Ratio (6-22) Glucose (80-110) mg/dL Lactate 2.8 H (0.7-2.1) mmol/L Calcium (8.4-10.2) mg/dL Magnesium 1.9 (1.6-2.3) mg/dL Iron (49-181) ug/dL TIBC (261-462) ug/dL % Saturation (20-50) % Transferrin (206-381) mg/dL Total Bilirubin (0.2-1.3) mg/dL AST (17-59) IU/L ALT (<50) IU/L Alkaline Phosphatase (38-126) U/L Ammonia (9-30) umol/L Troponin I (0.01-0.034) ng/mL NT-Pro-B Natriuret Pep (<125) pg/mL Total Protein (6.3-8.2) g/dL Albumin (3.5-5.0) g/dL Globulin (1.7-4.1) g/dL Albumin/Globulin Ratio (1.0-2.8) Lipase (23-300) U/L Vitamin B12 (239-931) pg/mL Folate (2.76-20.0) ng/mL Ethyl Alcohol ( - 10) mg/dL Ketones (<0.27) mmol/L Blood Type O Positive Antibody Screen Negative Crossmatch See Detail Discharge Plan Departure Patient Disposition: Admitted As Inpatient Clinical Impression: Acute dyspnea, Edema, peripheral, Anasarca, Acute GI bleeding Ascites Qualifiers: Ascites type: other type Qualified Code(s): R18.8 - Other ascites Anemia Qualifiers: Anemia type: unspecified type Qualified Code(s): D64.9 - Anemia, unspecified Pneumonia Qualifiers: Pneumonia type: due to unspecified organism Laterality: right Lung location: lower lobe of lung Qualified Code(s): J18.9 - Pneumonia, unspecified organism Discharge Date/Time: 05/05/19 01:37 Admit Date/Time: 05/04/19 19:56 Admit Provider: David Renteria
--- NOTE | 2019-05-05 12:45 | CM.DPNOTE ---
DCP: Unable to complete assessment as of yet. Patient is in reverse isolation, has friend at bedside. Patient is a poor historian with language barrier. Potential history of alcoholism, and has no medical insurance. Awaiting for daughter, Arianna, to arrive to [facility] from [facility]. May need to have COMMISSIONER OF OFFICIALS consult for potential CD assessment. P: DCP will assess patient when able to obtain more information. May need to consult with COMMISSIONER OF OFFICIALS as well, for further resources. Lina Lemus RN/[employer]
--- NOTE | 2019-05-05 13:07 | DIET.PN ---
Dietary Progress Note Assessment: 64y M admitted for pneumonia, cirrhosis c ascites and severe anemia referred to nutrition for pancytopenia and ascites. Unable to interview pt r/t pt being poor historian, on reverse precautions. Pt on Na+ restricted (2g) diet on disposable trays per isolation. Pt reports being in hospital in [place] for 2w for unknown causes. Pt may have high Na+ diet related to traditional [place] diet (fish sauce and MSG) [place] potentially exacerbating ascites and edema (2+) along c pt using herbal medicines instead of pharmaceuticals per physician notes. Pt has 2+ edema with ascites causing firm abdomen, pt's weight and BMI masked by fluid on board. HT: 172.7cm WT: 81.4kg BMI: 27.3 Labs: B12 >1000 H, Hgb 5.9 L*, INR 1.7H MNA: 14 Matthew:22 Interventions: 1. Daily weights, strict I&Os 2. Continue disposable meal trays with nothing leaving room until notified safe to do otherwise. Diet Order: EER: 2000kcal, 81g PRO (1g/kg), 2.4 L fluids unless restricted per physician Monitoring/Evaluations: POs, fluid status
[2019-05-05 13:59] LABS: Hematocrit 27.9 % (41-53); Hemoglobin 8.3 g/dL (13.5-17.5)
[2019-05-05 15:10] LABS: Ammonia (NH3) 12 umol/L (9-30)
--- NOTE | 2019-05-05 16:25 | PM.PN.1 ---
Subjective Subjective Date Patient Seen: 05/05/19 Interval history: The patient is a 64-year-old gentleman who was admitted to the hospital for increasing shortness of breath, increasing abdominal girth with abdominal pain, and lower extremity edema. The patient has a history of cirrhosis secondary to alcohol. He is had ascites and also lower extremity edema. He states that his usual weight is 160 lb. He is up to 179 at this time. The patient was in [place] February through March. He was seen by a physician who gave him medications and then went back to his hotel room where he convalesced until he returned back to the physician again. He did not continue the medication when he returned home. Over the past few days he complained of increasing shortness of breath with activity increasing swelling and presented for evaluation. The patient reports he feels better today. He has had no hematemesis or melena. Exam Vital Signs (past 8 hours): - 05/05/19 12:06 Temperature 99.6 F Pulse Rate 93 H Respiratory Rate 22 Blood Pressure 155/83 H Pulse Oximetry 100 Oxygen Delivery Method Room Air Oxygen Flow Rate 0 Narrative Exam Narrative: Elderly ill-appearing male lying in bed in no obvious distress Lungs: Decreased breath sounds bilaterally Cardiac exam: Regular rate and rhythm normal S1-S2 with a 2/6 systolic ejection murmur Abdomen: Distended, tympanic, positive fluid wave, liver not palpable Extremities: 3+ pitting edema bilaterally Skin exam no lesion Mental status the patient is awake and alert, he answers questions appropriately, has no evidence of confusion Objective Labs Result Diagrams: 05/05/19 09:10 05/05/19 03:00 Labs: Laboratory Results - last 24 hr 05/04/19 05/04/19 05/04/19 18:20 18:20 18:20 WBC 2.7 L RBC 3.17 L Hgb 5.9 L* Hct 20.3 L* MCV 63.9 L MCH 18.6 L MCHC 29.1 L RDW 28.6 H Plt Count 40 L Neut % (Auto) Not Reportable Lymph % (Auto) Not Reportable [place] % (Auto) Not Reportable Eos % (Auto) Not Reportable Baso % (Auto) Not Reportable Lymph # (Auto) Not Reportable [place] # (Auto) Not Reportable Baso # (Auto) Not Reportable Total Counted 90 Seg Neutrophils % 70.0 Band Neutrophils % 2.2 L Lymphocytes % (Manual) 17.8 L Atypical Lymphs % Monocytes % (Manual) 6.7 Eosinophils % (Manual) 2.2 Basophils % (Manual) 1.1 H Neutrophils # (Manual) 1949 L Nucleated RBCs 1 H Differential Comment Note: Platelet Estimate Decreased on smear RBC Morphology See below Polychromasia 1+ H Hypochromasia 3+ H Poikilocytosis 3+ H Anisocytosis 3+ H Microcytosis 3+ H Spherocytes 1+ H Target Cells 1+ H Tear Drop Cells 1+ H Ovalocytes 1+ H Acanthocytes (Spur) 1+ Schistocytes 1+ H Percent Retic PT 19.1 H INR 1.7 H APTT 37 H Sodium 139 Potassium 4.2 Chloride 113 H Carbon Dioxide 20 L BUN 14 Creatinine 0.60 L Estimated GFR > 60.0 BUN/Creatinine Ratio 23.3 H Glucose 116 H Lactate Calcium 7.5 L Magnesium Iron TIBC % Saturation Transferrin Total Bilirubin 1.1 AST 41 ALT 30 Alkaline Phosphatase 124 Ammonia Troponin I < 0.012 NT-Pro-B Natriuret Pep 596 H Total Protein 6.6 Albumin 2.4 L Globulin 4.2 H Albumin/Globulin Ratio 0.6 L Lipase 152 Vitamin B12 Folate Urine Color Urine Appearance Urine pH Ur Specific [place] Urine Protein Urine Glucose (UA) Urine Ketones Urine Occult Blood Urine Nitrate Urine Bilirubin Urine Urobilinogen Ur Leukocyte Esterase Urine RBC Urine WBC Urine Bacteria Ur Culture Indicated? Micro UA Comment Nasal Screen MRSA (PCR) Ethyl Alcohol Ketones Chlamy pneumoniae PCR Adenovirus (PCR) B.parapertussis DNA PCR Coronavirus OC43 (PCR) Coronavirus HKU1 (PCR) Coronavirus 229E (PCR) Coronavirus NL63 (PCR) Human Metapneumovir PCR Influenza Type A (PCR) Influenza Type B (PCR) M. pneumoniae (PCR) Parainfluenza 1 (PCR) Parainfluenza 2 (PCR) Parainfluenza 3 (PCR) Parainfluenza 4 (PCR) RSV (PCR) Entero/Rhino (PCR) Blood Type Antibody Screen Crossmatch 05/04/19 05/04/19 05/04/19 18:20 18:20 18:20 WBC RBC Hgb Hct MCV MCH MCHC RDW Plt Count Neut % (Auto) Lymph % (Auto) [place] % (Auto) Eos % (Auto) Baso % (Auto) Lymph # (Auto) [place] # (Auto) Baso # (Auto) Total Counted Seg Neutrophils % Band Neutrophils % Lymphocytes % (Manual) Atypical Lymphs % Monocytes % (Manual) Eosinophils % (Manual) Basophils % (Manual) Neutrophils # (Manual) Nucleated RBCs Differential Comment Platelet Estimate RBC Morphology Polychromasia Hypochromasia Poikilocytosis Anisocytosis Microcytosis Spherocytes Target Cells Tear Drop Cells Ovalocytes Acanthocytes (Spur) Schistocytes Percent Retic 2.4 PT INR APTT Sodium Potassium Chloride Carbon Dioxide BUN Creatinine Estimated GFR BUN/Creatinine Ratio Glucose Lactate Calcium Magnesium Iron TIBC % Saturation Transferrin Total Bilirubin AST ALT Alkaline Phosphatase Ammonia Troponin I NT-Pro-B Natriuret Pep Total Protein Albumin Globulin Albumin/Globulin Ratio Lipase Vitamin B12 Folate Urine Color Urine Appearance Urine pH Ur Specific [place] Urine Protein Urine Glucose (UA) Urine Ketones Urine Occult Blood Urine Nitrate Urine Bilirubin Urine Urobilinogen Ur Leukocyte Esterase Urine RBC Urine WBC Urine Bacteria Ur Culture Indicated? Micro UA Comment Nasal Screen MRSA (PCR) Ethyl Alcohol < 10 Ketones 0.05 Chlamy pneumoniae PCR Adenovirus (PCR) B.parapertussis DNA PCR Coronavirus OC43 (PCR) Coronavirus HKU1 (PCR) Coronavirus 229E (PCR) Coronavirus NL63 (PCR) Human Metapneumovir PCR Influenza Type A (PCR) Influenza Type B (PCR) M. pneumoniae (PCR) Parainfluenza 1 (PCR) Parainfluenza 2 (PCR) Parainfluenza 3 (PCR) Parainfluenza 4 (PCR) RSV (PCR) Entero/Rhino (PCR) Blood Type Antibody Screen Crossmatch 05/04/19 05/04/19 05/04/19 18:20 18:20 18:20 WBC RBC Hgb Hct MCV MCH MCHC RDW Plt Count Neut % (Auto) Lymph % (Auto) [place] % (Auto) Eos % (Auto) Baso % (Auto) Lymph # (Auto) [place] # (Auto) Baso # (Auto) Total Counted Seg Neutrophils % Band Neutrophils % Lymphocytes % (Manual) Atypical Lymphs % Monocytes % (Manual) Eosinophils % (Manual) Basophils % (Manual) Neutrophils # (Manual) Nucleated RBCs Differential Comment Platelet Estimate RBC Morphology Polychromasia Hypochromasia Poikilocytosis Anisocytosis Microcytosis Spherocytes Target Cells Tear Drop Cells Ovalocytes Acanthocytes (Spur) Schistocytes Percent Retic PT INR APTT Sodium Potassium Chloride Carbon Dioxide BUN Creatinine Estimated GFR BUN/Creatinine Ratio Glucose Lactate Calcium Magnesium Iron 18 L TIBC 378 % Saturation 5 L Transferrin 299 Total Bilirubin AST ALT Alkaline Phosphatase Ammonia 15 Troponin I NT-Pro-B Natriuret Pep Total Protein Albumin Globulin Albumin/Globulin Ratio Lipase Vitamin B12 > 1000 H Folate 9.5 Urine Color Urine Appearance Urine pH Ur Specific [place] Urine Protein Urine Glucose (UA) Urine Ketones Urine Occult Blood Urine Nitrate Urine Bilirubin Urine Urobilinogen Ur Leukocyte Esterase Urine RBC Urine WBC Urine Bacteria Ur Culture Indicated? Micro UA Comment Nasal Screen MRSA (PCR) Ethyl Alcohol Ketones Chlamy pneumoniae PCR Adenovirus (PCR) B.parapertussis DNA PCR Coronavirus OC43 (PCR) Coronavirus HKU1 (PCR) Coronavirus 229E (PCR) Coronavirus NL63 (PCR) Human Metapneumovir PCR Influenza Type A (PCR) Influenza Type B (PCR) M. pneumoniae (PCR) Parainfluenza 1 (PCR) Parainfluenza 2 (PCR) Parainfluenza 3 (PCR) Parainfluenza 4 (PCR) RSV (PCR) Entero/Rhino (PCR) Blood Type Antibody Screen Crossmatch 05/04/19 05/04/19 05/04/19 18:20 19:08 19:08 WBC RBC Hgb Hct MCV MCH MCHC RDW Plt Count Neut % (Auto) Lymph % (Auto) [place] % (Auto) Eos % (Auto) Baso % (Auto) Lymph # (Auto) [place] # (Auto) Baso # (Auto) Total Counted Seg Neutrophils % Band Neutrophils % Lymphocytes % (Manual) Atypical Lymphs % Monocytes % (Manual) Eosinophils % (Manual) Basophils % (Manual) Neutrophils # (Manual) Nucleated RBCs Differential Comment Platelet Estimate RBC Morphology Polychromasia Hypochromasia Poikilocytosis Anisocytosis Microcytosis Spherocytes Target Cells Tear Drop Cells Ovalocytes Acanthocytes (Spur) Schistocytes Percent Retic PT INR APTT Sodium Potassium Chloride Carbon Dioxide BUN Creatinine Estimated GFR BUN/Creatinine Ratio Glucose Lactate 2.8 H Calcium Magnesium 1.9 Iron TIBC % Saturation Transferrin Total Bilirubin AST ALT Alkaline Phosphatase Ammonia Troponin I NT-Pro-B Natriuret Pep Total Protein Albumin Globulin Albumin/Globulin Ratio Lipase Vitamin B12 Folate Urine Color Urine Appearance Urine pH Ur Specific [place] Urine Protein Urine Glucose (UA) Urine Ketones Urine Occult Blood Urine Nitrate Urine Bilirubin Urine Urobilinogen Ur Leukocyte Esterase Urine RBC Urine WBC Urine Bacteria Ur Culture Indicated? Micro UA Comment Nasal Screen MRSA (PCR) Ethyl Alcohol Ketones Chlamy pneumoniae PCR Adenovirus (PCR) B.parapertussis DNA PCR Coronavirus OC43 (PCR) Coronavirus HKU1 (PCR) Coronavirus 229E (PCR) Coronavirus NL63 (PCR) Human Metapneumovir PCR Influenza Type A (PCR) Influenza Type B (PCR) M. pneumoniae (PCR) Parainfluenza 1 (PCR) Parainfluenza 2 (PCR) Parainfluenza 3 (PCR) Parainfluenza 4 (PCR) RSV (PCR) Entero/Rhino (PCR) Blood Type O Positive Antibody Screen Negative Crossmatch See Detail 05/04/19 05/04/19 05/05/19 20:36 21:10 01:40 WBC RBC Hgb Hct MCV MCH MCHC RDW Plt Count Neut % (Auto) Lymph % (Auto) [place] % (Auto) Eos % (Auto) Baso % (Auto) Lymph # (Auto) [place] # (Auto) Baso # (Auto) Total Counted Seg Neutrophils % Band Neutrophils % Lymphocytes % (Manual) Atypical Lymphs % Monocytes % (Manual) Eosinophils % (Manual) Basophils % (Manual) Neutrophils # (Manual) Nucleated RBCs Differential Comment Platelet Estimate RBC Morphology Polychromasia Hypochromasia Poikilocytosis Anisocytosis Microcytosis Spherocytes Target Cells Tear Drop Cells Ovalocytes Acanthocytes (Spur) Schistocytes Percent Retic PT INR APTT Sodium Potassium Chloride Carbon Dioxide BUN Creatinine Estimated GFR BUN/Creatinine Ratio Glucose Lactate 2.0 Calcium Magnesium Iron TIBC % Saturation Transferrin Total Bilirubin AST ALT Alkaline Phosphatase Ammonia Troponin I NT-Pro-B Natriuret Pep Total Protein Albumin Globulin Albumin/Globulin Ratio Lipase Vitamin B12 Folate Urine Color Urine Appearance Urine pH Ur Specific [place] Urine Protein Urine Glucose (UA) Urine Ketones Urine Occult Blood Urine Nitrate Urine Bilirubin Urine Urobilinogen Ur Leukocyte Esterase Urine RBC Urine WBC Urine Bacteria Ur Culture Indicated? Micro UA Comment Nasal Screen MRSA (PCR) Negative for mrsa Ethyl Alcohol Ketones Chlamy pneumoniae PCR Not detected Adenovirus (PCR) Not detected B.parapertussis DNA PCR Not detected Coronavirus OC43 (PCR) Not detected Coronavirus HKU1 (PCR) Not detected Coronavirus 229E (PCR) Not detected Coronavirus NL63 (PCR) Not detected Human Metapneumovir PCR Not detected Influenza Type A (PCR) Not detected Influenza Type B (PCR) Not detected M. pneumoniae (PCR) Not detected Parainfluenza 1 (PCR) Not detected Parainfluenza 2 (PCR) Not detected Parainfluenza 3 (PCR) Not detected Parainfluenza 4 (PCR) Not detected RSV (PCR) Not detected Entero/Rhino (PCR) Not detected Blood Type Antibody Screen Crossmatch 05/05/19 05/05/19 05/05/19 03:00 03:00 04:24 WBC 3.3 L RBC 3.84 L Hgb 7.9 L Hct 26.3 L MCV 68.6 L D MCH 20.6 L MCHC 30.1 RDW 30.5 H Plt Count 38 L Neut % (Auto) Not Reportable Lymph % (Auto) Not Reportable [place] % (Auto) Not Reportable Eos % (Auto) Not Reportable Baso % (Auto) Not Reportable Lymph # (Auto) Not Reportable [place] # (Auto) Not Reportable Baso # (Auto) Not Reportable Total Counted 100 Seg Neutrophils % 62.0 Band Neutrophils % 2.0 L Lymphocytes % (Manual) 22.0 L Atypical Lymphs % 1.0 H Monocytes % (Manual) 11.0 Eosinophils % (Manual) 2.0 Basophils % (Manual) Neutrophils # (Manual) 2112 L Nucleated RBCs Differential Comment Platelet Estimate RBC Morphology See below Polychromasia 1+ H Hypochromasia Poikilocytosis 3+ H Anisocytosis 3+ H Microcytosis 3+ H Spherocytes Target Cells 1+ H Tear Drop Cells 1+ H Ovalocytes Acanthocytes (Spur) 1+ Schistocytes 1+ H Percent Retic PT INR APTT Sodium 140 Potassium 4.4 Chloride 113 H Carbon Dioxide 23 BUN 14 Creatinine 0.70 Estimated GFR > 60.0 BUN/Creatinine Ratio 20.0 Glucose 105 Lactate Calcium 7.4 L Magnesium Iron TIBC % Saturation Transferrin Total Bilirubin AST ALT Alkaline Phosphatase Ammonia Troponin I NT-Pro-B Natriuret Pep Total Protein Albumin Globulin Albumin/Globulin Ratio Lipase Vitamin B12 Folate Urine Color Yellow Urine Appearance Clear Urine pH 5.0 Ur Specific [place] 1.010 Urine Protein Negative Urine Glucose (UA) Negative Urine Ketones Negative Urine Occult Blood Negative Urine Nitrate Negative Urine Bilirubin Negative Urine Urobilinogen 0.2 Ur Leukocyte Esterase Negative Urine RBC None seen Urine WBC None seen Urine Bacteria None seen Ur Culture Indicated? Cult not indicated Micro UA Comment Microscopic normal Nasal Screen MRSA (PCR) Ethyl Alcohol Ketones Chlamy pneumoniae PCR Adenovirus (PCR) B.parapertussis DNA PCR Coronavirus OC43 (PCR) Coronavirus HKU1 (PCR) Coronavirus 229E (PCR) Coronavirus NL63 (PCR) Human Metapneumovir PCR Influenza Type A (PCR) Influenza Type B (PCR) M. pneumoniae (PCR) Parainfluenza 1 (PCR) Parainfluenza 2 (PCR) Parainfluenza 3 (PCR) Parainfluenza 4 (PCR) RSV (PCR) Entero/Rhino (PCR) Blood Type Antibody Screen Crossmatch 05/05/19 05/05/19 09:10 14:30 WBC RBC Hgb 8.3 L Hct 27.9 L MCV MCH MCHC RDW Plt Count Neut % (Auto) Lymph % (Auto) [place] % (Auto) Eos % (Auto) Baso % (Auto) Lymph # (Auto) [place] # (Auto) Baso # (Auto) Total Counted Seg Neutrophils % Band Neutrophils % Lymphocytes % (Manual) Atypical Lymphs % Monocytes % (Manual) Eosinophils % (Manual) Basophils % (Manual) Neutrophils # (Manual) Nucleated RBCs Differential Comment Platelet Estimate RBC Morphology Polychromasia Hypochromasia Poikilocytosis Anisocytosis Microcytosis Spherocytes Target Cells Tear Drop Cells Ovalocytes Acanthocytes (Spur) Schistocytes Percent Retic PT INR APTT Sodium Potassium Chloride Carbon Dioxide BUN Creatinine Estimated GFR BUN/Creatinine Ratio Glucose Lactate Calcium Magnesium Iron TIBC % Saturation Transferrin Total Bilirubin AST ALT Alkaline Phosphatase Ammonia 12 Troponin I NT-Pro-B Natriuret Pep Total Protein Albumin Globulin Albumin/Globulin Ratio Lipase Vitamin B12 Folate Urine Color Urine Appearance Urine pH Ur Specific [place] Urine Protein Urine Glucose (UA) Urine Ketones Urine Occult Blood Urine Nitrate Urine Bilirubin Urine Urobilinogen Ur Leukocyte Esterase Urine RBC Urine WBC Urine Bacteria Ur Culture Indicated? Micro UA Comment Nasal Screen MRSA (PCR) Ethyl Alcohol Ketones Chlamy pneumoniae PCR Adenovirus (PCR) B.parapertussis DNA PCR Coronavirus OC43 (PCR) Coronavirus HKU1 (PCR) Coronavirus 229E (PCR) Coronavirus NL63 (PCR) Human Metapneumovir PCR Influenza Type A (PCR) Influenza Type B (PCR) M. pneumoniae (PCR) Parainfluenza 1 (PCR) Parainfluenza 2 (PCR) Parainfluenza 3 (PCR) Parainfluenza 4 (PCR) RSV (PCR) Entero/Rhino (PCR) Blood Type Antibody Screen Crossmatch Assessment & Plan Assessment & Plan narrative: Impression 1. 64-year-old male admitted to the hospital with multiple complaints including shortness of breath, abdominal pain and lower extremity pain. 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 -patient has significant ascites, pleural effusions, possible pneumonia, and lower extremity edema -diuresis with Lasix has improved his breathing somewhat -the patient needs to have a paracentesis, and to resume a usual diuretic regimen. -will increase Lasix to 40 mg IV t.i.d., will add spironolactone 50 mg daily, will monitor his electrolytes closely -will add hepatitis-C and hep B serology given hepatic lesion 2. Abdominal ascites -patient likely has ascites related to his end-stage liver disease -SBP is a possibility, patient on antibiotics for probable pneumonia which should cover SBP -aS patient is in isolation will defer tapping him at this time, once the gonsalves virus studies come back negative will arrange for paracentesis and culture -continue diuresis as above 3. Hepatic lesion -question hepatocellular carcinoma -consider MRI study of the abscess once his isolation status has improved, awaiting alpha fetoprotein 4. Pneumonia -will treat patient with 5 days of levofloxacin -patient currently off oxygen at this time 5. Hypertension -probable baseline -will continue diuresis and spironolactone and monitor closely 6. Anemia -iron deficiency -guaiac-positive stool noted -patient received 2 units of packed RBCs -no evidence of significant acute blood loss anemia at this time -patient does warrant GI evaluation to include upper endoscopy/colonoscopy given his guaiac-positive stool -would defer at this time 7. Pancytopenia -likely related to alcohol and liver disease -no evidence of active bleeding -no indication for platelet transfusion -hemoglobin 7.9, no further blood transfusion, will start IV iron Quality VTE Deep Vein Thrombosis/Pulmonary Embolism Present on Admission: No
[2019-05-05] MEDS: levoFLOXacin 750 MG/150 ML PIGGYBACK 100 MG IV (19:09)
[2019-05-05] MEDS: IRON SUCROSE 200 MG in SODIUM CHLORIDE 0.9% 100 ML 220 ML IV (19:10)
[2019-05-05 20:08] LABS: BUN Creatinine Ratio 18.6 (6-22); Blood Urea Nitrogen 13 mg/dL (9-20); Calcium 7.5 mg/dL (8.4-10.2); Carbon Dioxide 23 mmol/L (22-32); Chloride 111 mmol/L (98-107); Estimated Glomerular Filt Rate > 60.0 mL/min (>60); Glucose 96 mg/dL (80-110); HEMOLYSIS < 15 (0-50); Potassium 3.8 mmol/L (3.4-5.1); Sodium 139 mmol/L (137-145)
[2019-05-05 20:09] LABS: Ammonia (NH3) 10 umol/L (9-30)
[2019-05-05 21:33] LABS: Hepatitis B Surface Antigen NEGATIVE s/c (NEGATIVE)
[2019-05-05 21:56] LABS: Hep C Virus Ab w/Reflex Quant REACTIVE s/c (NEGATIVE)
--- NOTE | 2019-05-05 23:31 | PC.NURSE ---
Patient A/Ox4, no pain, room air, no SOB. Able to use urinal independently. 2 PIV, saline locked. Daughter to return in morning.
[2019-05-06] VITALS (7 sets, daily range): BP systolic 120–138; BP diastolic 70–79; PULSE 89–112; RESP 16–20; TEMP 36.7–37.7; O2SAT 96–100
[2019-05-06] MEDS: FUROSEMIDE 40 MG/4 ML VIAL IV ×3 (01:00→16:46)
[2019-05-06] MEDS: FOLIC ACID 1 MG TABLET PO (08:07)
[2019-05-06] MEDS: SPIRONOLACTONE 50 MG TABLET PO (08:07)
[2019-05-06] MEDS: THIAMINE 100 MG TABLET PO (08:26)
[2019-05-06 08:58] LABS: INR 1.7 (0.9-1.3); Prothrombin Time 19.2 SECONDS (10.1-12.7)
[2019-05-06 09:00] LABS: PTT Partial Thromboplastin Tim 40 SECONDS (26.4-36.2)
[2019-05-06 09:04] LABS: Hematocrit 23.9 % (41-53); Hemoglobin 7.4 g/dL (13.5-17.5); Mean Corpuscular HGB Conc 30.9 % (30-36); Mean Corpuscular Hemoglobin 20.8 PG (26-34); Mean Corpuscular Volume 67.3 fL (80-100); Red Blood Cell Count 3.56 X10^6/uL (4.5-5.9); Red Cell Distribution Width 30.9 % (11.6-14.8); White Blood Cell Count 3.5 X10^3/uL (4.5-11.0)
[2019-05-06 09:09] LABS: Add Manual Diff / Slide Review YES
[2019-05-06 09:11] LABS: Alanine Aminotransferase 27 IU/L (<50); Albumin 2.3 g/dL (3.5-5.0); Albumin Globulin Ratio 0.6 (1.0-2.8); Alkaline Phosphatase 88 U/L (38-126); Aspartate Aminotransferase 43 IU/L (17-59); BUN Creatinine Ratio 18.6 (6-22); Bilirubin Total 1.2 mg/dL (0.2-1.3); Blood Urea Nitrogen 13 mg/dL (9-20); Calcium 7.5 mg/dL (8.4-10.2); Carbon Dioxide 23 mmol/L (22-32); Chloride 109 mmol/L (98-107); Estimated Glomerular Filt Rate > 60.0 mL/min (>60); Globulin 3.9 g/dL (1.7-4.1); Glucose 121 mg/dL (80-110); HEMOLYSIS < 15 (0-50); Potassium 3.9 mmol/L (3.4-5.1); Sodium 138 mmol/L (137-145); Total Protein 6.2 g/dL (6.3-8.2)
[2019-05-06 09:26] LABS: Neutrophils Absolute Manual 1820 /uL (3000-5900); Total Cells Counted 100
[2019-05-06 09:27] LABS: Anisocytosis 3+; Microcytosis 3+; Platelet Estimate Decreased on smear; Poikilocytosis 2+
[2019-05-06 09:28] LABS: Ovalocytes 1+; Tear Drop Cells 1+
[2019-05-06 09:29] LABS: Hypochromasia 3+; Schistocytes 1+; Target Cells 2+
[2019-05-06 09:31] LABS: Platelet Count 42 X10^3/uL (150-400)
--- NOTE | 2019-05-06 11:30 | P.PN_ITS ---
Subjective Subjective Date Patient Seen: 05/06/19 Interval history: The patient is a 64-year-old male who was admitted to the hospital for shortness of breath. Patient has known end-stage liver disease. He was recently and [place] until late March. Apparently prior to his visit to [facility] he had lower extremity edema, ascites as well. It he was given what sounds like diuretics while he was on his trip to [place] with improvement. He discontinued all medications upon return home and developed recurrent swelling of the lower extremities abdominal distension and shortness of breath. Patient was started on Lasix 40 IV 3 times daily yesterday. Although we do not have accurate eyes and nose it appears that his breathing is better. He reports he is less short of breath at rest and with activity. His abdomen is still distended but softer. He continues to have edema in his lower extremity. Patient does have some dry cough which is nonproductive. He is noted to have a low-grade fever of 99.6?. Exam Vital Signs (past 8 hours): - 05/06/19 06:00 05/06/19 07:50 05/06/19 08:26 Temperature 99.4 F 98.6 F Pulse Rate 89 90 93 H Respiratory Rate 18 18 Blood Pressure 133/78 125/70 Pulse Oximetry 99 98 96 Oxygen Delivery Method Room Air Oxygen Flow Rate 0 Narrative Exam Narrative: Pleasant gentleman resting comfortably in no obvious distress HEENT: Normocephalic atraumatic, extraocular muscles are intact, oropharynx is clear, there is poor dentition Neck: JVD to the angle of the jaw, there is shotty supraclavicular adenopathy noted Lungs: Decreased breath sounds bilaterally but clear to auscultation Cardiac exam: Regular rate and rhythm normal S1-S2 with a 2/6 systolic ejection murmur Abdomen: Distended, softer than yesterday, still with a positive fluid wave no appreciable hepatosplenomegaly Lower extremities: 2+ pitting edema bilaterally Objective Labs Result Diagrams: 05/06/19 08:30 05/06/19 08:30 Labs: Laboratory Results - last 24 hr 05/05/19 05/05/19 05/05/19 09:10 14:30 19:45 WBC RBC Hgb 8.3 L Hct 27.9 L MCV MCH MCHC RDW Plt Count Neut % (Auto) Lymph % (Auto) Mayes % (Auto) Eos % (Auto) Baso % (Auto) Lymph # (Auto) Mayes # (Auto) Baso # (Auto) Total Counted Seg Neutrophils % Lymphocytes % (Manual) Atypical Lymphs % Monocytes % (Manual) Eosinophils % (Manual) Neutrophils # (Manual) Platelet Estimate RBC Morphology Hypochromasia Poikilocytosis Anisocytosis Microcytosis Target Cells Tear Drop Cells Ovalocytes Schistocytes PT INR APTT Sodium 139 Potassium 3.8 Chloride 111 H Carbon Dioxide 23 BUN 13 Creatinine 0.70 Estimated GFR > 60.0 BUN/Creatinine Ratio 18.6 Glucose 96 Calcium 7.5 L Total Bilirubin AST ALT Alkaline Phosphatase Ammonia 12 Total Protein Albumin Globulin Albumin/Globulin Ratio Hep Bs Antigen Hepatitis C Antibody 05/05/19 05/05/19 05/06/19 19:45 19:45 08:30 WBC 3.5 L RBC 3.56 L Hgb 7.4 L Hct 23.9 L MCV 67.3 L MCH 20.8 L MCHC 30.9 RDW 30.9 H Plt Count 42 L Neut % (Auto) Not Reportable Lymph % (Auto) Not Reportable Mayes % (Auto) Not Reportable Eos % (Auto) Not Reportable Baso % (Auto) Not Reportable Lymph # (Auto) Not Reportable Mayes # (Auto) Not Reportable Baso # (Auto) Not Reportable Total Counted 100 Seg Neutrophils % 52.0 Lymphocytes % (Manual) 31.0 Atypical Lymphs % 3.0 H Monocytes % (Manual) 12.0 H Eosinophils % (Manual) 2.0 Neutrophils # (Manual) 1820 L Platelet Estimate Decreased on smear RBC Morphology See below Hypochromasia 3+ H Poikilocytosis 2+ H Anisocytosis 3+ H Microcytosis 3+ H Target Cells 2+ H Tear Drop Cells 1+ H Ovalocytes 1+ H Schistocytes 1+ H PT INR APTT Sodium Potassium Chloride Carbon Dioxide BUN Creatinine Estimated GFR BUN/Creatinine Ratio Glucose Calcium Total Bilirubin AST ALT Alkaline Phosphatase Ammonia 10 Total Protein Albumin Globulin Albumin/Globulin Ratio Hep Bs Antigen Negative Hepatitis C Antibody Reactive H 05/06/19 05/06/19 08:30 08:30 WBC RBC Hgb Hct MCV MCH MCHC RDW Plt Count Neut % (Auto) Lymph % (Auto) Mayes % (Auto) Eos % (Auto) Baso % (Auto) Lymph # (Auto) Mayes # (Auto) Baso # (Auto) Total Counted Seg Neutrophils % Lymphocytes % (Manual) Atypical Lymphs % Monocytes % (Manual) Eosinophils % (Manual) Neutrophils # (Manual) Platelet Estimate RBC Morphology Hypochromasia Poikilocytosis Anisocytosis Microcytosis Target Cells Tear Drop Cells Ovalocytes Schistocytes PT 19.2 H INR 1.7 H APTT 40 H D Sodium 138 Potassium 3.9 Chloride 109 H Carbon Dioxide 23 BUN 13 Creatinine 0.70 Estimated GFR > 60.0 BUN/Creatinine Ratio 18.6 Glucose 121 H Calcium 7.5 L Total Bilirubin 1.2 AST 43 ALT 27 Alkaline Phosphatase 88 Ammonia Total Protein 6.2 L Albumin 2.3 L Globulin 3.9 Albumin/Globulin Ratio 0.6 L Hep Bs Antigen Hepatitis C Antibody Assessment & Plan Assessment & Plan narrative: Impression 1. 64-year-old male admitted to the hospital with multiple complaints including shortness of breath, abdominal pain and lower extremity pain. 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 Hepatitis C antibody came back positive, hepatitis-C RNA quantitative PCR is still pending. -patient has significant ascites, pleural effusions, possible pneumonia, and lower extremity edema -diuresis with Lasix has improved his breathing somewhat , will continue IV Lasix at the current dose. Will weigh the patient daily. -the patient needs to have a paracentesis, and to resume a usual diuretic regimen. -continue IV Lasix, and spironolactone -hepatitis B serology negative, hepatitis-C antibody positive, await hepatitis C RNA quantitative PCR 2. Abdominal ascites -patient likely has ascites related to his end-stage liver disease -SBP is a possibility, patient on antibiotics for probable pneumonia which should cover SBP -aS patient is in isolation will defer tapping him at this time, once the gonsalves virus studies come back negative will arrange for paracentesis and culture -continue diuresis as above -abdominal distension improved, patient is still with significant fluid wave, the patient still has anasarca. He is on Lasix and spironolactone, he is on levofloxacin which should address SBP should that be an issue. -anticipate paracentesis in 1-2 days, culture fluid at that time 3. Hepatic lesion -question hepatocellular carcinoma -consider MRI study of the abscess once his isolation status has improved, awaiting alpha fetoprotein -hep C viral results as above 4. Pneumonia -will treat patient with 5 days of levofloxacin -patient currently off oxygen at this time -suspicion for pneumonia is low, given recent travel to [place] agree with ruling out TB -will obtain AFB culture 5. Hypertension -probable baseline -will continue diuresis and spironolactone and monitor closely -blood pressure improved with diuresis 6. Anemia -iron deficiency -guaiac-positive stool noted -patient received 2 units of packed RBCs -no evidence of significant acute blood loss anemia at this time -patient does warrant GI evaluation to include upper endoscopy/colonoscopy given his guaiac-positive stool -would defer at this time 7. Pancytopenia -likely related to alcohol and liver disease -no evidence of active bleeding -no indication for platelet transfusion -hemoglobin 7.9, no further blood transfusion, will start IV iron 8. Rule out Novel Gonsalves Virus-patient was traveling in an endemic area during the outbreak. There are 15 cases there. It although his risk is low the patient has had nasopharyngeal and oropharyngeal swab sent to the [facility] to definitively rule this out. In the event the patient is positive for gonsalves virus his contacts will be quarantined for 14 days. We continue to await results, we have been in discussion with the [facility] department who will guide us on next steps. In the interim patient is in a negative flow isolation, and staff require full respiratory, droplet isolation, and Papr when evaluating the patient. Overall the patient has improved in terms of his breathing and abdominal pain. A would anticipate discharge home after paracentesis if this can be obtained tomorrow. We are continuing to await the results of the gonsalves virus study as the patient was visiting in the endemic area. Patient should receive MRI 3 face study to rule out hepatocellular carcinoma prior to discharge. Would arrange for outpatient GI evaluation for upper endoscopy given his anemia, guaiac-positive stool and probability of varices. Quality VTE Deep Vein Thrombosis/Pulmonary Embolism Present on Admission: No
--- NOTE | 2019-05-06 11:53 | DI.RAD.S_ITS ---
PROCEDURE: XR CHEST 1V INDICATIONS: r/o pneumonia TECHNIQUE: One view of the chest was acquired. COMPARISON: [facility], CT, CT ABDOMEN PELVIS W CON, 05/04/2019, 20:36. [facility], CR, CHEST 2 VIEW, 08/11/2013, 9:00. [facility], CR, XR CHEST 1V, 05/04/2019, 18:23. FINDINGS: Surgical changes and devices: None. Lungs and pleura: Mild left basilar atelectasis. No pleural effusions or pneumothorax. Mediastinum: Mediastinal contours appear normal. Heart size is normal. Bones and chest wall: No suspicious bony lesions. Overlying soft tissues appear unremarkable. IMPRESSION: No acute cardiopulmonary disease. Dictated by: Sid Francois M.D. on 05/06/2019 at 14:32 Approved by: Sid Francois M.D. on 05/06/2019 at 14:37
--- NOTE | 2019-05-06 14:00 | CM.DANOTE ---
DCP Assessment: Per MD, pt still remains on airborne precautions as test results for Coronavirus will not be back from [facility] until likely Saturday05/08/19 and pt continues to not be medically stable for d/c for other medical needs at this time. Patient is Nepali and can speak and understand some [place] but language barrier strong when discussing medical care and medication management. Dtr states that she can interpret for pt but formal attendant child activity may be needed for complex medical discussion and SW discussed that hospital can provide via at least phone/computer attendant child activity if needed. 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 Pt's Dtr/informal DPALANA Burgess ([phone]) lives in [place] and her older sister lives in [facility] [place] and visit pt occasionally but pt has not needed assist until now. Pt has a long hx of ETOH and smoking but began having health complications starting about 3 months ago and pt has significantly reduced his drinking the past couple months and then the past 3 weeks quit drinking completely on his own and plans to remain sober from now on. Dtr feels that pt will be able to remain sober without significant difficulty but feels CD tx could be beneficial. Dtr states that pt could also really benefit from additional assist with managing meds and understanding medical dx and that once pt is set up with a routine of when and how to take medications and how to care for himself he is very strict on following a routine. SW discussed many options depending on pt's dx (once coronavirus results back), progress while admitted, medical needs, PT/OT recommendations, etc.. including SNF rehab and provided SNF Choice List, CD inpt tx vs outpt tx, HH. SW emphasized that pt's insurance [employer] would dictate available options for SNF/HH/CD tx. Dtr very agreeable with any option needed closer to d/c and willing to begin discussing options with pt so that he is ready for what is needed closer to d/c. SW provided the HH Choice List and discussed [facility] the only agency that covers [place] and would need to be contracted with pt's insurance and possible [facility] for [facility] volunteer or CG to assist with managing meds and building a routine. SW called [facility] to inquire if they are contracted with [employer] and had to leave Mariella in their office a msg requesting call back to determine if they are contracted. ANTHONY called [facility] and [employer] is not one that they are currently contracted with but if another company manages [employer] then they could likely accept. SW attempted to research more online but ran out of time. Plan: DCP to follow closely for results of Coronavirus results and likely need for PT eval to determine if SNF or HH needed at d/c and if SNF not needed then further discussion with pt/Dtr Tanya regarding ETOH treatment. SW to follow for return call from [facility] to see if contracted with pt's insurance. JUSTUS Willis
--- NOTE | 2019-05-06 14:30 | PC.NURSE ---
0300 - 1500 Shift Patient alert and oriented x3. Remains in airborne precautions. Pt in good spirits, denies pain, denies shortness of breath, SpO2 98%. Steady on feet in room. Using call light appropriately to make needs known. Daughter at bedside today.
[2019-05-06] MEDS: levoFLOXacin 750 MG/150 ML PIGGYBACK 100 MG IV (20:12)
[2019-05-07] MEDS: FUROSEMIDE 40 MG/4 ML VIAL IV ×3 (00:59→17:26)
[2019-05-07 01:07] VITALS: BP 117/74; PULSE 89; RESP 16; TEMP 37.9; O2SAT 98
[2019-05-07 05:21] VITALS: BP 132/80; PULSE 77; RESP 18; TEMP 36.4; O2SAT 99
[2019-05-07 08:00] VITALS: BP 121/75; PULSE 79; RESP 22; TEMP 37.1; O2SAT 100
[2019-05-07] MEDS: FOLIC ACID 1 MG TABLET PO (08:44)
[2019-05-07] MEDS: THIAMINE 100 MG TABLET PO (08:44)
[2019-05-07] MEDS: SPIRONOLACTONE 50 MG TABLET PO (08:44)
[2019-05-07 09:28] LABS: Hematocrit 26.4 % (41-53); Hemoglobin 8.2 g/dL (13.5-17.5); Mean Corpuscular HGB Conc 31.1 % (30-36); Mean Corpuscular Hemoglobin 21.2 PG (26-34); Mean Corpuscular Volume 68.2 fL (80-100); Platelet Count 55 X10^3/uL (150-400); Red Blood Cell Count 3.86 X10^6/uL (4.5-5.9); Red Cell Distribution Width 31.4 % (11.6-14.8); White Blood Cell Count 4.7 X10^3/uL (4.5-11.0)
[2019-05-07 09:35] LABS: Add Manual Diff / Slide Review YES
[2019-05-07 09:37] LABS: Alanine Aminotransferase 31 IU/L (<50); Albumin 2.5 g/dL (3.5-5.0); Albumin Globulin Ratio 0.6 (1.0-2.8); Alkaline Phosphatase 100 U/L (38-126); Aspartate Aminotransferase 52 IU/L (17-59); Bilirubin Total 1.4 mg/dL (0.2-1.3); Blood Urea Nitrogen 12 mg/dL (9-20); Calcium 7.7 mg/dL (8.4-10.2); Carbon Dioxide 27 mmol/L (22-32); Chloride 105 mmol/L (98-107); Estimated Glomerular Filt Rate > 60.0 mL/min (>60); Globulin 4.4 g/dL (1.7-4.1); Glucose 87 mg/dL (80-110); HEMOLYSIS < 15 (0-50); Potassium 3.8 mmol/L (3.4-5.1); Sodium 135 mmol/L (137-145); Total Protein 6.9 g/dL (6.3-8.2)
[2019-05-07 10:01] LABS: Anisocytosis 3+; Hypochromasia 3+; Neutrophils Absolute Manual 2820 /uL (3000-5900); Target Cells 2+; Tear Drop Cells 2+; Total Cells Counted 50
[2019-05-07 12:15] VITALS: BP 124/74; PULSE 86; RESP 20; TEMP 37.5; O2SAT 100
[2019-05-07 15:37] LABS: Alpha Fetoprotein 1.7 ng/mL (< 6.1)
--- NOTE | 2019-05-07 15:57 | CM.DPC ---
DCP: continued: case was received and discussed in Team Rounds with Dr. Mason. He stated that he planned to discuss the status as relates to management of pt's Coronovirus rule out and that he would not be going into pt's room until that had been completed. Pt's daughter Arianna has been in and out of the room and is very unclear how this is factoring in to the Coronovirus situation. Dr. Mason advised that for now it would be best for this DCPlanner to speak with Jenifer by phone. Returned to office just now to find pt's daughter in the office room. Explained above and she expressed understanding. Exchanged phone numbers and will be speaking with her tomorrow as office is closed for the day.
[2019-05-07 18:02] VITALS: BP 128/80; PULSE 87; RESP 22; TEMP 37.2; O2SAT 99
--- NOTE | 2019-05-07 18:17 | P.PN_ITS ---
Subjective Subjective Date Patient Seen: 05/07/19 Time Patient Seen: 17:30 Interval history: The patient is a 64-year-old male who was admitted to the hospital for shortness of breath. Patient has known end-stage liver disease. He was recently and [place] until late March. Apparently prior to his visit to via not he had lower extremity edema, ascites as well. It he was given what sounds like diuretics while he was on his trip to [place] with improvement. He discontinued all medications upon return home and developed recurrent swelling of the lower extremities abdominal distension and shortness of breath. Patient was started on Lasix 40 IV 3 times daily now 2 days ago with marked improvement in his respiratory status. He has not been able to ambulate very far, but while ambulating in his room he denies any shortness of breath and he is currently doing well. His abdomen is still distended but now soft. He does complain of a bulge in his groin, which is somewhat tender. He continues to have edema in his lower extremity, although the patient thinks that this is getting better today. His cough is improved. He did have a low-grade temperature to 100.3 overnight. Patient is being evaluated for novel gonsalves virus, and is currently on airborne isolation. Current estimation for return time of the specimen is 72 hours from today, which is Saturday. Exam Vital Signs (past 8 hours): - 05/07/19 12:15 05/07/19 18:02 Temperature 99.5 F 99.0 F Pulse Rate 86 87 Respiratory Rate 20 22 Blood Pressure 124/74 128/80 Pulse Oximetry 100 99 Oxygen Delivery Method Room Air Oxygen Flow Rate 0 Narrative Exam Narrative: GENERAL APPEARANCE: Well developed, well nourished, in no acute distress. SKIN: Inspection of the skin reveals no rashes, ulcerations or petechiae. HEENT: The sclerae were anicteric and conjunctivae were pink and moist. Extraocular movements were intact and pupils were equal, round with normal accommodation. External inspection of the ears and nose showed no scars, lesions, or masses. Lips, teeth, and gums showed normal mucosa. The oral mucosa, hard and soft palate, tongue and posterior pharynx were unremarkable. NECK: Supple and symmetric. There was no thyroid enlargement, and no tenderness, or masses were felt. CHEST: Normal AP diameter and normal contour without any kyphoscoliosis. LUNGS: Auscultation of the lungs revealed no wheezes, rhonchi, or rales. CARDIOVASCULAR: There was a regular rate and rhythm without any murmurs, gallops, rubs. Peripheral pulses were 2+ and symmetric. ABDOMEN: Soft, distended with a fluid wave. There is ascites. He is nontender. There is swelling in his groin raising the concern for possible hernia, however this area is relatively nontender and may just be due to significant ascites. MUSCULOSKELETAL: There was no tenderness or effusions noted. Muscle strength and tone were normal. EXTREMITIES: No cyanosis, clubbing. There is 2+ pitting edema bilaterally in his lower extremities. NEUROLOGIC: Alert and oriented x 3. Normal affect. Gait was normal. Strength is +5/5 in the Upper Extremities and Lower Extremities Bilaterally. Sensation to touch was normal. Objective Labs Result Diagrams: 05/07/19 09:00 05/07/19 09:00 Labs: Laboratory Results - last 24 hr 05/04/19 05/05/19 05/07/19 18:20 03:00 09:00 WBC 4.7 RBC 3.86 L Hgb 8.2 L Hct 26.4 L MCV 68.2 L MCH 21.2 L MCHC 31.1 RDW 31.4 H Plt Count 55 L Neut % (Auto) Not Reportable Lymph % (Auto) Not Reportable [place] % (Auto) Not Reportable Eos % (Auto) Not Reportable Baso % (Auto) Not Reportable Lymph # (Auto) Not Reportable [place] # (Auto) Not Reportable Baso # (Auto) Not Reportable Total Counted 50 Seg Neutrophils % 58.0 Band Neutrophils % 2.0 L Lymphocytes % (Manual) 32.0 Atypical Lymphs % 2.0 H Monocytes % (Manual) 2.0 Eosinophils % (Manual) 4.0 Neutrophils # (Manual) 2820 L RBC Morphology Not Reportable Hypochromasia 3+ H Anisocytosis 3+ H Target Cells 2+ H Tear Drop Cells 2+ H Smear Path Review Sodium Potassium Chloride Carbon Dioxide BUN Creatinine Estimated GFR BUN/Creatinine Ratio Glucose Calcium Total Bilirubin AST ALT Alkaline Phosphatase Total Protein Albumin Globulin Albumin/Globulin Ratio Alpha Fetoprotein 1.7 05/07/19 09:00 WBC RBC Hgb Hct MCV MCH MCHC RDW Plt Count Neut % (Auto) Lymph % (Auto) [place] % (Auto) Eos % (Auto) Baso % (Auto) Lymph # (Auto) [place] # (Auto) Baso # (Auto) Total Counted Seg Neutrophils % Band Neutrophils % Lymphocytes % (Manual) Atypical Lymphs % Monocytes % (Manual) Eosinophils % (Manual) Neutrophils # (Manual) RBC Morphology Hypochromasia Anisocytosis Target Cells Tear Drop Cells Smear Path Review Sodium 135 L Potassium 3.8 Chloride 105 Carbon Dioxide 27 BUN 12 Creatinine 0.60 L Estimated GFR > 60.0 BUN/Creatinine Ratio 20.0 Glucose 87 Calcium 7.7 L Total Bilirubin 1.4 H AST 52 ALT 31 Alkaline Phosphatase 100 Total Protein 6.9 Albumin 2.5 L Globulin 4.4 H Albumin/Globulin Ratio 0.6 L Alpha Fetoprotein Assessment & Plan Assessment & Plan narrative: 64-year-old male admitted to the hospital with multiple complaints including shortness of breath, abdominal pain and lower extremity pain likely secondary to cirrhosis with massive ascites and edema, his symptoms are dramatically improved after diuresis. Given his initial constellation of symptoms upon admission, patient is currently being ruled out for the novel gonsalves virus. Testing has been sent to the [facility] and we are curren tly awaiting this test result. 1. RLL infiltrate and possible pneumonia, present on admission, resolved - -as noted above his constellation of symptoms, imaging consistent with pneumonia, and recent travel prompted droplet isolation for rule out of a novel gonsalves virus infection. Testing is currently pending with the [facility]. His respiratory panel done here was negative. He is also being ruled out for TB with 3 sputums, however this is also unlikely. 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 Hepatitis C antibody came back positive, hepatitis-C RNA quantitative PCR is still pending. -patient has significant ascites, however pleural effusions have essentially resolved on repeat imaging, and possible pneumonia is no longer present. Lower extremity edema is relatively unchanged. -diuresis with Lasix has improved his breathing. -continue daily weights and intake and output as feasible given droplet isolation. -the patient needs to have a paracentesis, and to resume a usual diuretic regimen. Will attempt paracentesis once novel gonsalves virus testing has returned. -continue IV Lasix, and spironolactone -hepatitis B serology negative, hepatitis-C antibody positive, await hepatitis C RNA quantitative PCR -patient is being treated with 5 days of Levaquin 2. Abdominal ascites secondary to liver cirrhosis, present on admission -patient likely has ascites related to his end-stage liver disease -SBP is a possibility, patient on antibiotics for probable pneumonia which should cover SBP. -aS patient is in isolation will defer tapping him at this time, once the gonsalves virus studies come back negative will arrange for paracentesis and cult ure -continue diuresis as above -abdominal distension improved, patient is still with significant fluid wave, the patient still has anasarca. He is on Lasix and spironolactone, he is on levofloxacin which should address SBP should that be an issue. -anticipate paracentesis once gonsalves virus testing is completed, culture fluid at that time 3. Hepatic lesion -question hepatocellular carcinoma -consider MRI study of the abscess once his isolation status has improved, awaiting alpha fetoprotein -hep C viral results as above 4. Hypertension -probable baseline -will continue diuresis and spironolactone and monitor closely -blood pressure improved with diuresis 5. Anemia -iron deficiency -guaiac-positive stool noted -patient received 2 units of packed RBCs -no evidence of significant acute blood loss anemia at this time -patient does warrant GI evaluation to include upper endoscopy/colonoscopy given his guaiac-positive stool -would defer at this time given novel carona virus, stable h/h. This can likely be done as an outpatient. 6. Pancytopenia -likely related to alcohol and liver disease -no evidence of active bleeding -no indication for platelet transfusion -hemoglobin 7.9, no further blood transfusion, he was given one dose of IV iron. H/h has been stable. 7. Rule out Novel Gonsalves Virus-patient was traveling in an endemic area during the outbreak. There are 15 cases in [facility]. It although his risk is low the patient has had nasopharyngeal and oropharyngeal swab sent to the [facility] to definitively rule this out. In the event the patient is positive for gonsalves virus his contacts will be quarantined for 14 days. We continue to await results, we have been in discussion with the [facility] who will guide us on next steps. In the interim patient is in a negative flow isolation, and staff require full respiratory, droplet isolation, and Papr when evaluating the patient. Overall the patient has improved in terms of his breathing and abdominal pain. A would anticipate discharge home after paracentesis. We are continuing to await the results of the gonsalves virus study as the patient was visiting in the endemic area. Patient should receive MRI 3 phase study to rule out hepatocellular carcinoma prior to discharge. Would arrange for outpatient GI evaluation for upper endoscopy given his anemia, guaiac-positive stool and pr obability of varices. Quality VTE Deep Vein Thrombosis/Pulmonary Embolism Present on Admission: No
[2019-05-07] MEDS: levoFLOXacin 750 MG/150 ML PIGGYBACK 100 MG IV (20:17)
[2019-05-08] MEDS: FUROSEMIDE 40 MG/4 ML VIAL IV ×3 (00:59→16:46)
[2019-05-08] MEDS: SODIUM CHLORIDE 0.9% FLUSH 10 ML IV ×2 (01:00→10:52)
[2019-05-08 01:38] VITALS: BP 115/63; PULSE 82; RESP 16; TEMP 37.3; O2SAT 98
[2019-05-08 05:11] LABS: Basophils Absolute Auto 0 /uL (0-100); Basophils Percent Auto 0.4 % (0-2); Eosinophils Absolute Auto 100 /uL (0-450); Eosinophils Percent Auto 3.2 % (2-4); Hematocrit 26.8 % (41-53); Hemoglobin 8.4 g/dL (13.5-17.5); Lymphocytes Absolute Auto 800 /uL (1100-4500); Lymphocytes Percent Auto 18.5 % (25-40); Mean Corpuscular HGB Conc 31.5 % (30-36); Mean Corpuscular Hemoglobin 21.6 PG (26-34); Mean Corpuscular Volume 68.5 fL (80-100); Monocytes Absolute Auto 800 /uL (0-900); Monocytes Percent Auto 19.4 % (3-14); Neutrophils Absolute Auto 2400 /uL (1500-7000); Neutrophils Percent Auto 58.5 % (50-75); Platelet Count 48 X10^3/uL (150-400); Red Blood Cell Count 3.91 X10^6/uL (4.5-5.9); Red Cell Distribution Width 31.2 % (11.6-14.8); White Blood Cell Count 4.1 X10^3/uL (4.5-11.0)
[2019-05-08 05:24] LABS: Add Manual Diff / Slide Review SLIDE REVIEW
[2019-05-08 06:33] LABS: Anisocytosis 3+
[2019-05-08 06:34] LABS: Hypochromasia 3+; Poikilocytosis 3+; Target Cells 2+
[2019-05-08 06:35] LABS: Ovalocytes 1+
[2019-05-08 06:36] LABS: Spherocytes 1+; Tear Drop Cells 1+
--- NOTE | 2019-05-08 08:16 | CM.DPC ---
Addendum entered by Nel Chang LPN 05/08/19 16:59: Dr. Mason's progress note remains in draft at this time. Review of this in the morning should provide more clarity. Total of 5 hours spent on this case over the last 2 days. Addendum entered by Nel Chang LPN 05/08/19 16:43: Arianna and her sister arrived about 1245. Given the information re POA living abdullahi. Dr. Mason was agreeable to speak with them again and they were in conversation with him much of the afternoon. Dr. Mason clarified that he does not think that pt has an irreversible process and, if he accepts medical management he should be able to recover. Pt has been up and about in the room, making his bed, dressed in street clothes. Am not clear on the outcome of these discussions today. DCP team to continue to follow. Addendum entered by Nel Chang LPN 05/08/19 08:59: Spoke at length with daughter Arianna. She expresses frustration re what she sees as conflicting information given by various staff members. Is eager to understand more about the liver disease management. She has not yet been updated by Dr. Mason and has many questions that are only appropriate for him to answer. She will be here today about 1100. Wants POA/Living will information and wishes this to be notarized. Will see if this can be facilitated with notary standing outside closed glass door and observing pt signatures. Will provide the DPOA brochure that gives to patients. Dr. Mason states in his progress note that pt does have end stage liver disease. Discussed consideration of a [facility] info visit if appropriate. Arianna does confirm that pt did not continue any medications after returning from [place] as he ran out of what they gave him. He never takes any medication when he is here in the [place]. She says he obtained his [employer] insurance from the [employer] and that he pays $800 a month for it. He just obtained this in March and [facility]see Admit Marketing Traffic Manager notes in [place]. Moni is reviewing these now as she waits on hold with [employer]. Original Note: DCP: continued: Dr. Mason's progress note of last evening is reviewed. Have asked [facility] Moni to research pt's insurance ([employer]) to see if a snf benefit is included and, if so, any network specifics etc. Have requested she document her findings in the Pt Care notes. P:discuss case today in Team Rounds. Followup with pt's daughter for ? of plan post d/c. Dr. Mason is anticipating that, pending coronovirus rule out, pt will undergo a paracentesis and then d/c to home setting. Need to find out what type of support pt will have going forward.
[2019-05-08 09:00] VITALS: BP 123/77; PULSE 81; RESP 16; TEMP 36.6; O2SAT 96
[2019-05-08] MEDS: THIAMINE 100 MG TABLET PO (10:51)
[2019-05-08] MEDS: SPIRONOLACTONE 50 MG TABLET PO (10:52)
[2019-05-08] MEDS: FOLIC ACID 1 MG TABLET PO (10:52)
--- NOTE | 2019-05-08 11:16 | PC.NURSE ---
AM shift Pt continues to report improved Resp effort and lessening SOB with activity. Steady on feet and up ambulating in room indep. Continue to follow airborne precautions until test results return. Visitor this am and Patient reeducated about ongoing precautions. Denies pain, IV lasix continues, Pt is not measuring eachvoid , reminded to do so for accurate i/o.
[2019-05-08 14:13] LABS: Hepatitis B Core IgM Nonreactive (Nonreactive)
[2019-05-08 14:15] LABS: Hepatitis B Core Antibody Reactive (Nonreactive)
--- NOTE | 2019-05-08 15:02 | P.PN_ITS ---
Subjective Subjective Date Patient Seen: 05/08/19 Time Patient Seen: 15:03 Interval history: Dilan Christine is a 64-year-old male who was admitted to the hospital for shortness of breath. Patient has known end-stage liver disease. He was recently in [place] until late March. Apparently [facility] had lower extremity edema, ascites as well. It he was given what sounds like diuretics while he was on his trip to [place] with improvement. He discontinued all medications upon return home and developed recurrent swelling of the lower extremities abdominal distension and shortness of breath. Patient was started on Lasix 40 IV 3 times daily and has markedly improved with his respiratory status. He has not been able to ambulate very far, but while ambulating in his room he denies any shortness of breath and he is currently doing well. His abdomen is still distended but now soft and appears to have decreased in size slightly today. He does complain of a bulge in his groin, which is somewhat tender. He continues to have edema in his lower extremity, although the patient thinks that this is getting better today. His cough is improved. He did again have a low- grade elevated temperature to 100.3 overnight. Patient is being evaluated for novel gonsalves virus given his travel history and presenting symptoms, and is currently on airborne isolation. Current estimation for return time of the specimen is now between tomorrow and Saturday. Had extensive discussion over the past few days regarding the patient's condition and improvement. As well as regarding the next steps in his care as well as what we are currently doing for the patient. I updated them on the most recent lab testing that has been performed. Exam Vital Signs (past 8 hours): - 05/08/19 09:00 Temperature 97.8 F Pulse Rate 81 Respiratory Rate 16 Blood Pressure 123/77 Pulse Oximetry 96 Oxygen Delivery Method Room Air Oxygen Flow Rate 0 Narrative Exam Narrative: GENERAL APPEARANCE: Well developed, well nourished, in no acute distress. SKIN: Inspection of the skin reveals no rashes, ulcerations or petechiae. HEENT: The sclerae were anicteric and conjunctivae were pink and moist. Extraocular movements were intact and pupils were equal, round with normal accommodation. External inspection of the ears and nose showed no scars, lesions, or masses. Lips, teeth, and gums showed normal mucosa. The oral mucosa, hard and soft palate, tongue and posterior pharynx were unremarkable. NECK: Supple and symmetric. There was no thyroid enlargement, and no tenderness, or masses were felt. CHEST: Normal AP diameter and normal contour without any kyphoscoliosis. LUNGS: Auscultation of the lungs revealed no wheezes, rhonchi, or rales. CARDIOVASCULAR: There was a regular rate and rhythm without any murmurs, gallops, rubs. Peripheral pulses were 2+ and symmetric. ABDOMEN: Soft, distended with a fluid wave. There is ascites. He is nontender. There is swelling in his groin raising the concern for possible hernia, however this area is relatively nontender and may just be due to significant ascites. MUSCULOSKELETAL: There was no tenderness or effusions noted. Muscle strength and tone were normal. EXTREMITIES: No cyanosis, clubbing. There is 2+ pitting edema bilaterally in his lower extremities. NEUROLOGIC: Alert and oriented x 3. Normal affect. Gait was normal. Strength is +5/5 in the Upper Extremities and Lower Extremities Bilaterally. Sensation to touch was normal. Objective Labs Result Diagrams: 05/08/19 04:40 05/07/19 09:00 Labs: Laboratory Results - last 24 hr 05/04/19 05/05/19 05/05/19 19:08 03:00 19:45 WBC RBC Hgb Hct MCV MCH MCHC RDW Plt Count Neut % (Auto) Lymph % (Auto) [place]y % (Auto) Eos % (Auto) Baso % (Auto) Neut # (Auto) Lymph # (Auto) [place]y # (Auto) Eos # (Auto) Baso # (Auto) RBC Morphology Hypochromasia Poikilocytosis Anisocytosis Spherocytes Target Cells Tear Drop Cells Ovalocytes Alpha Fetoprotein 1.7 Hep B Core Total Ab Reactive A Hep B Core IgM Ab Crossmatch See Detail 05/05/19 05/08/19 19:45 04:40 WBC 4.1 L RBC 3.91 L Hgb 8.4 L Hct 26.8 L MCV 68.5 L MCH 21.6 L MCHC 31.5 RDW 31.2 H Plt Count 48 L Neut % (Auto) 58.5 Lymph % (Auto) 18.5 L D[place]y % (Auto) 19.4 H Eos % (Auto) 3.2 Baso % (Auto) 0.4 Neut # (Auto) 2400 Lymph # (Auto) 800 L D[place]y # (Auto) 800 Eos # (Auto) 100 Baso # (Auto) 0 RBC Morphology See below Hypochromasia 3+ H Poikilocytosis 3+ H Anisocytosis 3+ H Spherocytes 1+ H Target Cells 2+ H Tear Drop Cells 1+ H Ovalocytes 1+ H Alpha Fetoprotein Hep B Core Total Ab Hep B Core IgM Ab Nonreactive Crossmatch Assessment & Plan Assessment & Plan narrative: 64-year-old male admitted to the hospital with multiple complaints including shortness of breath, abdominal pain and lower extremity pain likely secondary to cirrhosis with massive ascites and edema, his symptoms are dramatically improved after diuresis. Given his initial constellation of symptoms upon admission, patient is currently being ruled out for the novel gonsalves virus. Testing has been sent to the [facility] and we are currently awaiting this test result. This could come as early as tomorrow or as late as saturday. 1. RLL infiltrate and possible pneumonia, present on admission, resolved - -as noted above his constellation of symptoms, imaging consistent with pneumonia, and recent travel prompted droplet isolation for rule out of a novel gonsalves virus infection. Testing is currently pending with the [facility]. His respiratory panel done here was negative. He is also being ruled out for TB with 3 sputums, however this is also unlikely, and sputums will not return before patient is likely discharge. 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 Hepatitis C antibody came back positive, hepatitis-C RNA quantitative PCR is still pending. -patient has significant ascites, however pleural effusions have essentially resolved on repeat imaging, and possible pneumonia is no longer present. Lower extremity edema is relatively unchanged. -diuresis with Lasix has improved his breathing and LE edema as well as the amount of his ascites. -continue daily weights and intake and output as feasible given droplet isolation. -the patient needs to have a paracentesis, and to resume a usual diuretic regimen. However performing an invasive procedure on someone being evaluated for the novel caronavirus increases the risk of transmission. Given non-urgent, paracentesis can be done once novel gonsalves virus testing has returned. -continue IV Lasix, and spironolactone -hepatitis B serology negative, hepatitis-C antibody positive, await hepatitis C RNA quantitative PCR -patient has received 4 days of levaquin therapy, can discontinue after 5 days. 2. Abdominal ascites secondary to likely alcoholic liver cirrhosis, present on admission -patient likely has ascites related to his end-stage liver disease -SBP is a possibility, patient on antibiotics for probable pneumonia which should cover SBP. -aS patient is in isolation will defer tapping him at this time, once the gonsalves virus studies come back negative will arrange for paracentesis and cul ture, further fluid analysis and cytology as well. -continue diuresis as above - patient will need to establish care with a automobile damage appraiser or GI as an outpatient. Etiology of cirrhosis is likely alcohol related. Patient also with hep C antibody pending quantitative analaysis to confirm if active or not. 3. Hepatic lesion -question hepatocellular carcinoma -consider MRI study of the abscess once his isolation status has improved, awaiting alpha fetoprotein -hep C viral results as above 4. Hypertension -probable baseline -will continue diuresis and spironolactone and monitor closely -blood pressure improved with diuresis 5. Anemia -iron deficiency -guaiac-positive stool noted -patient received 2 units of packed RBCs -no evidence of significant acute blood loss anemia at this time and his Hg remains fairly stable. -patient does warrant GI evaluation to include upper endoscopy/colonoscopy given his guaiac-positive stool and to evaluate for varices. -would defer at this time given novel carona virus, stable h/h. This can likely be done as an outpatient. 6. Pancytopenia -likely related to alcohol and liver disease -no evidence of active bleeding -no indication for platelet transfusion -hemoglobin stable around 8-9, no further blood transfusion, he was given one dose of IV iron. 7. Rule out Novel Gonsalves Virus-patient was traveling in an endemic area during the outbreak. There are 15 cases in [place]. It although his risk is low the patient has had nasopharyngeal and oropharyngeal swab sent to the [facility] to definitively rule this out. In the event the patient is positive for gonsalves virus his contacts will be quarantined for 14 days. We continue to await resu lts, we have been in discussion with the [facility] department who will guide us. In the interim patient is in a negative flow isolation, and staff require full respiratory, droplet isolation, and Papr when evaluating the patient. Overall the patient has improved in terms of his breathing and abdominal pain. A would anticipate discharge home after paracentesis and MRI, however these could possibly be done as an outpatient as well. We are continuing to await the results of the gonsalves virus study as the patient was visiting in the endemic area. In discussion today he could theoretically be discharged under home isolation, however this would need to be coordinated with the department of health, care management, patient, and family. There are significant risks if the patient tests positive from a global health perspective. The family also would like to do as much as possible for the patient's rapid diagnosis and treatment, and staying until his MRI and paracentesis can be performed in the next few days would benefit the family. Quality VTE Deep Vein Thrombosis/Pulmonary Embolism Present on Admission: No
[2019-05-08 17:06] VITALS: BP 125/81; PULSE 87; RESP 16; TEMP 37; O2SAT 100
[2019-05-08] MEDS: levoFLOXacin 750 MG/150 ML PIGGYBACK 100 MG IV (20:43)
[2019-05-08 23:48] VITALS: BP 116/69; PULSE 92; RESP 20; TEMP 37.7; O2SAT 94
[2019-05-09] MEDS: FUROSEMIDE 40 MG/4 ML VIAL IV ×3 (00:37→17:20)
[2019-05-09] MEDS: SODIUM CHLORIDE 0.9% FLUSH 10 ML IV ×2 (00:37→09:16)
[2019-05-09 06:11] LABS: Basophils Absolute Auto 0 /uL (0-100); Eosinophils Absolute Auto 100 /uL (0-450); Eosinophils Percent Auto 3.2 % (2-4); Hematocrit 26.1 % (41-53); Hemoglobin 8.3 g/dL (13.5-17.5); Lymphocytes Absolute Auto 600 /uL (1100-4500); Lymphocytes Percent Auto 16.4 % (25-40); Mean Corpuscular HGB Conc 31.6 % (30-36); Mean Corpuscular Volume 69.6 fL (80-100); Monocytes Absolute Auto 700 /uL (0-900); Monocytes Percent Auto 18.4 % (3-14); Neutrophils Absolute Auto 2200 /uL (1500-7000); Platelet Count 51 X10^3/uL (150-400); Red Blood Cell Count 3.76 X10^6/uL (4.5-5.9); Red Cell Distribution Width 31.7 % (11.6-14.8); White Blood Cell Count 3.7 X10^3/uL (4.5-11.0)
[2019-05-09 06:32] LABS: Add Manual Diff / Slide Review SLIDE REVIEW
[2019-05-09 07:27] LABS: Anisocytosis 3+; Hypochromasia 3+; Ovalocytes 1+; Poikilocytosis 2+; Polychromasia 2+
[2019-05-09 08:20] LABS: Alanine Aminotransferase 32 IU/L (<50); Albumin 2.5 g/dL (3.5-5.0); Albumin Globulin Ratio 0.6 (1.0-2.8); Alkaline Phosphatase 100 U/L (38-126); Aspartate Aminotransferase 61 IU/L (17-59); Bilirubin Total 1.8 mg/dL (0.2-1.3); Blood Urea Nitrogen 16 mg/dL (9-20); Calcium 8.1 mg/dL (8.4-10.2); Carbon Dioxide 26 mmol/L (22-32); Chloride 101 mmol/L (98-107); Estimated Glomerular Filt Rate > 60.0 mL/min (>60); Globulin 4.3 g/dL (1.7-4.1); Glucose 101 mg/dL (80-110); HEMOLYSIS < 15 (0-50); Potassium 4.1 mmol/L (3.4-5.1); Sodium 132 mmol/L (137-145); Total Protein 6.8 g/dL (6.3-8.2)
[2019-05-09 08:49] VITALS: BP 132/67; PULSE 80; RESP 15; TEMP 36.8; O2SAT 100
[2019-05-09] MEDS: FOLIC ACID 1 MG TABLET PO (09:16)
[2019-05-09] MEDS: THIAMINE 100 MG TABLET PO (09:16)
[2019-05-09] MEDS: SPIRONOLACTONE 50 MG TABLET PO (09:17)
--- NOTE | 2019-05-09 13:40 | PT-IP ANOTE ---
PT eval received. Talked to the nurse regarding pt and nurse stated that pt is independent with mobility and ambulation without AD in his room. pt has contact precautions and has restriction with mobility outside his room at this time. Talked to the doctor and stated that the showcase maker has concerns regarding SNF needs but doctor agreed to d/c PT eval order if pt does not need other d/c placement needs. Talked to the showcase maker Mariel and informed that per nurse, pt is independent with mobility without AD in his room. digital experience manager stated that that's what she thought but concerned about DME needs. informed showcase maker that pt is independent with mobility in his room without AD and will not need DME. will d/c PT eval order.
--- NOTE | 2019-05-09 16:07 | PC.NURSE ---
Per Dr. Spears, patient is negative for Coronavirus and can be changed from airborne isolation to standard precautions.
--- NOTE | 2019-05-09 17:35 | PM.DS.1 ---
History of Present Illness History of Present Illness Date Patient Seen: 05/04/19 Chief complaint: heart hurts, trouble breathing Narrative: Written by David LARSEN: Mr. Dilan Juárez is a 64-year-old male with unknown medical history as he does not seek medical care and takes only herbal medications. Patient presents to the ER due to increasing shortness of breath with a cough over the last 2-3 days. The patient is very difficult historian and additional information is obtained from close friend who indicates that the patient has had baseline shortness of breath for several months and noticed that his abdomen has gotten more distended. Patient has reported that he has increased abdominal pain with activity and exertional dyspnea. He denies complaints of fevers or chills and has no headaches or dizziness. He he reports no nasal congestion or sore throat. He denies complaints of chest pain or palpitations. He has shortness of breath as above. His states his abdomen has been distended and is more so than usual. He does endorse a history alcohol consumption but is unclear how much. He denies complaints constipation, diarrhea and denies blood in his stool. The patient traveled to [facility] leaving the end of February and returning April 24. While in [facility] the patient was in the hospital for 15 days but cannot state the reason or the dates and reports he was there for ?observation?. Upon arrival to the ER the patient is afebrile with temperature 98.5?, tachycardic at 109, blood pressure 171/101, respiratory rate of 24 saturating 99% on room air. On imaging chest x-ray shows right lower lobe infiltrate suspicious for pneumonia. He underwent abdominal pelvis CT with contrast revealing a nodular liver consistent with cirrhosis with a 2 cm Hinkle lesion in the inferior hepatic lobe and low-density nodule seen in the superior right hepatic lobe, the spleen is enlarged measuring 14.1 cm, remainder is solid organs appear within normal limits, large amount of ascites is noted as present and scattered colonic diverticula, small umbilical hernia. Twelve lead EKG finds sinus tach without ectopy, block or ischemia. On laboratory analysis he is pancytopenic with a white count of 2.7, hemoglobin of 5.9, hematocrit 20.3 and platelets of 40. His MCV is 63.9 and MCH is 18.6. He is noted to have 2.2 bands and on blood smear shows polychromasia, hypochromasia, poiklilocytosis, anisocytosis, mircocytosis, sphereocytes, target cells, tear drop cells, ovalocytes and schistocytes. On coagulation the patient has a PT of 19.1, INR of 1.7 and PTT of 37. On chemistries electrolytes are within normal limits and has a BUN 14 and creatinine 0.6 with a nonfasting glucose of 116. His magnesium is 1.9. His liver functions include a total bili of 1.1, AST of 41, ALT of 30, alkaline phosphatase 124. His lipase is is 152 and his albumin is 2.4. His ammonia level is 15. Has lactic acid of 2.8. Troponin is found to be less than 0.012 and a pro BNP of 596. Vitamin B12 is greater than 1000 and folate is 9.5. On toxicology is negative for ethanol alcohol and ketones are 0.05. Discharge Providers Provider Date of admission: 05/04/19 19:56 Discharge Date: 05/09/19 Consults: 05/04/19 21:26 Consult to Dietitian, Adult Routine Comment: Reason For Exam: Pancytopenia, ascites Consult to Discharge Planning Routine Comment: 05/09/19 10:13 Consult to Physical Therapy Evaluate & Treat Comment: Physician Instructions: Evaluate and Treat Discharge provider: Anabella Spears DO Summary Hospital Course Discharge Diagnosis: 1. RLL bacterial pneumonia, present on admission. Resolved. 2. 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 Resolved. 3. Hepatic lesion, likely chronic, present on admission. Active. 4. Hypertension, chronic, present on admission. Stable. 5. Anemia, chronic, present on admission. Stable. 6. Pancytopenia, chronic, present on admission. Stable. 7. Ruled out Novel Coronavirus. Hospital Course: Dilan Juárez is a 64-year-old male who was admitted to the hospital with multiple complaints including shortness of breath, abdominal pain and lower extremity pain likely secondary to cirrhosis with massive ascites and edema with symptoms dramatically improved after diuresis. Given his initial constellation of symptoms and travel history upon admission the patient was placed in isolation and ruled out for the novel gonsalves virus. 1. RLL bacterial pneumonia, present on admission. Resolved. -Due to patient's constellation of symptoms, imaging consistent with pneumonia, and recent travel prompted droplet isolation precautions and rule out of a novel coronavirus infection. COVID 19 negative and ruled out. Respiratory viral PCR negative. He is also being ruled out for TB with 3 sputums, however this is also unlikely, and sputums will not return before patient is likely discharge. -Patient had significant ascites and pleural effusions and resultant shortness of breath which essentially resolved with diuresis. Performing invasive procedures such as thoracentesis or paracentesis carried a high transmission risk of coronavirus if positive, therefore, these were not pursued as both thoracentesis and paracentesis were considered non-urgent. -Patient received 5 day course of levofloxacin. 2. 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 Resolved. -Patient had abdominal ascites and pleural effusions related to end-stage liver disease. -SBP was a possibility and the patient was on broad-spectrum IV antibiotics which would treat SBP. -Hepatitis B serology negative. Hepatitis C antibody positive and hepatitis C RNA quantitative PCR pending. Highly recommend establishing care with GI or hepatology as an outpatient for evaluation and treatment of cirrhosis and possible HCC. -Continued IV furosemide which was switched to furosemide 40 mg twice daily at time of discharge and spironolactone 100 mg daily. -Continued daily weights and strict I&Os as feasible given droplet isolation. 3. Hepatic lesion, likely chronic, present on admission. Active. -Questionable liver lesion and possible hepatocellular carcinoma. -Recommended outpatient imaging such as MR liver protocol per GI/hepatology. -Ordered alpha fetoprotein which is a send out and pending. -Hep C viral results as above. 4. Hypertension, chronic, present on admission. Stable. -Continued diuresis with furosemide and spironolactone as above. -Blood pressure improved with diuresis. 5. Anemia, chronic, present on admission. Stable. -Iron panel indicative of iron deficiency. -Guaiac-positive stool noted. -Received 2 units of PRBCs. No evidence of significant acute blood loss anemia at this time and his hemoglobin remained fairly stable. -Patient does warrant GI evaluation to include upper endoscopy/colonoscopy given his guaiac-positive stool and to evaluate for varices and will need to be pursued outpatient per GI/hepatology. 6. Pancytopenia, chronic, present on admission. Stable. -Secondary to alcohol use and secondary bone marrow suppression and liver disease. -No evidence of active bleeding. No indication for platelet transfusion. -Hemoglobin stable around 8-9. Received 2 U PRBC. No need for further blood transfusion. Received one dose of Venofer. 7. Ruled out Novel Coronavirus. -Patient was traveling in an endemic area during the outbreak. There were 15 cases in [place]. Although patient was initially low risk, per previous providers discussion with [facility] patient was placed in negative pressure isolation and COVID [address] [facility] which was negative and definitively ruled out coronavirus. -Continued negative flow isolation with full respiratory droplet isolation and PAPR to evaluate the patient until COVID 19 ruled out. Had discussion with patient's 2 daughters who were quite distraught, hostile and using profanity quite often. Patient's daughters were accusing hospital of racial profiling of their father. They did not believe their father at received the appropriate care. Discussed patient's overall care which was appropriate for pneumonia and cirrhosis with ascites. The patient was discharged and patient's daughters seemed agreeable to plan. Exam Vital Signs (past 8 hours): Oxygen Delivery Method Room Air Oxygen Flow Rate 0 Narrative Exam Narrative: General: Older thin male sitting in bed and in no acute distress, appears older than stated age, language barrier but appropriately interactive. HEENT: Normocephalic, atraumatic. External ears without defect. Pupils equal, round, and reactive to light. Anicteric sclerae, moist conjunctivae, and no lid lag. Oropharynx free of erythema and cobble stoning with moist mucosa. Neck: Supple with full range of motion. No lymphadenopathy or thyromegaly. Cardiovascular: Regular rate and rhythm without murmurs, rubs, or gallops appreciated. Pulmonary: Clear to auscultation bilaterally without crackles, wheezes, or rhonchi. Normal respiratory effort with no use of accessory muscles. Abdomen: Mild ascites without window for paracentesis, soft, bowel tones present, nontender, nondistended. Hepatosplenomegaly noted. No masses appreciated. Extremities: No clubbing, cyanosis, or edema. Skin: Normal temperature, turgor, and texture; no rash, ulcers, or subcutaneous nodules appreciated. Neurological: Cranial nerves grossly intact. Psychiatric: Normal mood and affect. Appears alert and oriented to person, place, and time. Objective Labs Result Diagrams: 05/09/19 04:50 05/09/19 04:50 Labs: Laboratory Results - last 24 hr 05/09/19 05/09/19 04:50 04:50 WBC 3.7 L RBC 3.76 L Hgb 8.3 L Hct 26.1 L MCV 69.6 L MCH 22.0 L MCHC 31.6 RDW 31.7 H Plt Count 51 L Neut % (Auto) 61.0 Lymph % (Auto) 16.4 L [place] % (Auto) 18.4 H Eos % (Auto) 3.2 Baso % (Auto) 1.0 Neut # (Auto) 2200 Lymph # (Auto) 600 L [place] # (Auto) 700 Eos # (Auto) 100 Baso # (Auto) 0 RBC Morphology See below Polychromasia 2+ H Hypochromasia 3+ H Poikilocytosis 2+ H Anisocytosis 3+ H Ovalocytes 1+ H Sodium 132 L Potassium 4.1 Chloride 101 Carbon Dioxide 26 BUN 16 Creatinine 0.80 Estimated GFR > 60.0 BUN/Creatinine Ratio 20.0 Glucose 101 Calcium 8.1 L Total Bilirubin 1.8 H AST 61 H ALT 32 Alkaline Phosphatase 100 Total Protein 6.8 Albumin 2.5 L Globulin 4.3 H Albumin/Globulin Ratio 0.6 L Discharge Plan Discharge Plan Patient Disposition: Home Discharge comment: You are being discharged home. You do not have the novel coronavirus. You have completed the course of treatment for pneumonia. You have liver cirrhosis (extensive scarring of the liver) and two liver lesions in the liver. You need to have both your cirrhosis and liver lesions further worked up by a engineering technical specialist with lab tests and imaging. His liver disease is likely due to excessive alcohol use and probable hepatitis-C infection (RNA quantification test pending). If he indeed has detectable hepatitis-C infection this will need to be treated by a engineering technical specialist. He is immune or vaccinated against hepatitis B. Recommend that he obtain a hospital follow-up in the next 1 week with a primary care provider in the area and have a referral placed and expedited to hepatology. He will then need to establish care with a primary care provider in the area to continue his medical care and medications. He has been tested for exposure to tuberculosis called QuantiFERON gold which is pending. He unlikely has had a tuberculosis infection as he is no longer febrile and he is not producing sputum. He has been prescribed furosemide 40 mg twice daily and spironolactone 100 mg daily to treat his liver cirrhosis and fluid accumulation in his abdomen called ascites. He has been prescribed folic acid and thiamine supplements as these vitamins can be deficient in people who use alcohol chronically. Please keep his salt intake to less than 2000 mg or 2 g per day and his fluid intake to a maximum of 2 L per day which includes all fluids. Discharge orders & Medications Prescriptions: New folic acid 1 mg Tablet 1 mg PO DAILY Qty: 30 RF: 0 thiamine HCl (vitamin B1) [Vitamin B-1] 100 mg Tablet 100 mg PO DAILY Qty: 30 RF: 0 spironolactone 50 mg Tablet 100 mg PO DAILY Qty: 60 RF: 0 furosemide 40 mg tablet 40 mg PO BID Qty: 60 RF: 0 Diet/Activity/Treatments Diet: Low-sodium Diet comment: < 2 g or 2000 mg sodium/day, fluid restriction < 2L a day (all fluids) Activity: Activity as tolerated Visit Report/Discharge Packet Instructions: Progress in Stroke Prevention, Alcohol Use Disorder, DI for Ascites, DI for Cirrhosis, Fluid Restricted Diet, Low-Sodium Diet Discharges patient from system. Discharge Date/Time: 05/09/19 18:25 Quality VTE Deep Vein Thrombosis/Pulmonary Embolism Present on Admission: No
[2019-05-09 18:35] VITALS: BP 143/73; PULSE 80; RESP 16; TEMP 37.6; O2SAT 100
--- NOTE | 2019-05-09 18:45 | PC.NURSE ---
Patient discharged home via private vehicle. A/O x4, stable. IV access discontinued. All belongings removed from room and taken by daughter.
[2019-05-11 10:07] LABS: NIL 0.04; QuantiFERON TB NEGATIVE
[2019-05-11 10:08] LABS: Mitogen-NIL 0.07; TB1-NIL 0.01
[2019-05-11 10:09] LABS: TB2-NIL 0.01
== END 2019-05-09 18:25 | disposition home or self-care (01) | DRG 432 ==
LOC: ED 19:54 → AC 19:57 → ICU 05-05 09:20 → AC 06-18 15:48
PROVIDERS: Internal Medicine; Admitting Provider Nurse Practitioner Adult Health; Emergency Provider Emergency Medicine; Referring Provider Nurse Practitioner Adult Health; Visit Provider Nurse Practitioner Adult Health
DX: K70.31 Alcoholic cirrhosis of liver with ascites (principal); J18.9 Pneumonia, unspecified organism; D61.818 Other pancytopenia; C22.8 Malignant neoplasm of liver, primary, unspecified as to type; R60.1 Generalized edema; F17.210 Nicotine dependence, cigarettes, uncomplicated; R19.5 Other fecal abnormalities; I10 Essential (primary) hypertension; K72.90 Hepatic failure, unspecified without coma; D50.9 Iron deficiency anemia, unspecified; B19.20 Unspecified viral hepatitis C without hepatic coma; F10.20 Alcohol dependence, uncomplicated
CPT/HCPCS: 36415; 36430; 71045; 74177; 80048; 80053; 80320; 81001; 82009; 82105; 82140; 82607; 82746; 83540; 83550; 83605; 83690; 83735; 83880; 84484; 85014; 85018; 85025; 85045; 85610; 85730; 86480; 86644; 86704; 86705; 86803; 86850; 86900; 86901; 87040; 87340; 87522; 87633; 87797; 93005; 94762; 96365; 96366; 96375; 99285; P9016; J1756; J1940; J1956; J3475; Q9967